=== PATIENT | male | born 1970 | race Caucasian/White ===

== ENCOUNTER → 2017-10-13 10:28 | Outpatient (CLI) | payer OTHER, SELFPAY ==
[2017-10-13 12:59] LABS: Cholesterol 198 mg/dL (200); High Density Lipoprotein 29 mg/dL; Triglycerides 307 mg/dL; Very Low Density Lipoprotein 61 mg/dL (5-40)
== END ==
PROVIDERS: Family Provider Family Medicine; PCP Family Medicine; Visit Provider Family Medicine
DX: Z00.00 Encounter for general adult medical examination without abnormal findings (principal)
CPT/HCPCS: 36415; 80061

== ENCOUNTER → 2018-05-04 15:24 | Outpatient (CLI) | payer OTHER, SELFPAY ==
--- NOTE | 2018-05-04 15:50 | MRI_ITS ---
STUDY: MRI BRAIN WITH AND WITHOUT CONTRAST REASON FOR EXAM: Male, 48 years old. Multiple sclerosis TECHNIQUE: Standardized multiplanar fat and water weighted pulse sequences were obtained. 11 ml of Gadavist contrast material was administered intravenously for the contrast portion of the examination. COMPARISON: September 03, 2016 FINDINGS: Normal size of the ventricles and extra-axial spaces for the patient's age. There are multiple periventricular white matter lesions several of which involve the septal callosal interface and demonstrate the appearance of Barraza's fingers system with clinical history of multiple sclerosis. There is enhancement of one of the lesions in the left parietal lobe consistent with acute demyelination There appear to be tiny lesions within the basal ganglia possibly representing coexisting old lacunar infarcts Normal thalami. There is no extra-axial fluid accumulation. Normal flow voids within the major intracranial circulation suggesting patency by spin echo criteria. Normal venous enhancement. There is no enhancing intra-axial or extra-axial abnormality. Normal sella turcica, pituitary gland, infundibular stalk, optic chiasm and hypothalamus. Normal tectal plate and pineal gland. Normal midbrain, suman and medulla. Normal cerebellum. Normal basal cisterns. Normal bilateral temporal bones. Normal bilateral internal auditory canals. No demonstrated orbital abnormality, within the constraints of a routine brain study. Mild mucosal thickening within the maxillary sinuses and minor mucosal thickening within the ethmoid air cells bilaterally.. Normal calvarium and skull base. Normal visualized soft tissue structures. Normal visualized upper cervical spine. Other than the new enhancing lesion in the left parietal lobe there is no significant interval change since prior exam MRI/Brain W/WO Contrast IMPRESSION: Relatively stable appearance to known multiple sclerosis except for a new lesion in the left parietal lobe demonstrating enhancement consistent with active demyelination Tiny lesions involving the basal ganglia which may be consistent with coexisting old lacunar infarcts. Clinical correlation recommended. Electronically Signed: Vinayak Jackson MD at 19:01 EST , Service support ,
--- NOTE | 2018-05-04 15:50 | MRI_ITS ---
STUDY: MRI CERVICAL SPINE WITH AND WITHOUT CONTRAST REASON FOR EXAM: Male, 48 years old. Multiple sclerosis TECHNIQUE: Standardized fat and water weighted pulse sequences were obtained in the sagittal and axial following I.V. administration of 11 ml of Gadavist contrast material. COMPARISON: None FINDINGS: Normal foramen magnum and brainstem-cervical cord junction. Normal craniovertebral junction. Normal anterior atlantoaxial articulation. Normal odontoid process. Normal cervical lordosis. Normal vertebral bodies and posterior osseous elements. C2-3: Normal endplates. Normal disc height, signal and morphology. Normal central canal and intervertebral neural foramina. C3-4: Normal endplates. Normal disc height, signal and small central disc protrusion.. Normal central canal . Minor left neural foraminal encroachment secondary to bony hypertrophy C4-5: Normal endplates. Normal disc height, signal and morphology. Normal central canal. Normal bilateral neuroforamina C5-6: Mild endplate spurring.. Normal disc height, signal and small central disc protrusion in association with diffuse osteophytic ridging.. Mild narrowing of the central canal. Severe bilateral neuroforaminal stenosis secondary to bony hypertrophy C6-7: Normal endplates. Normal disc height, signal and minimal bulging of the disc.. Normal central canal . Moderate left neural foraminal encroachment secondary to disc and bony hypertrophy C7-T1: Normal endplates. Normal disc height, signal and morphology. Normal central canal and intervertebral neural foramina. Normal cervical cord. Normal visualized soft tissue structures. MRI/Spine Cervical W/WO Contrast IMPRESSION: No evidence for acute fracture or other significant bony pathology. Mild spondylosis most advanced at C5-6. No focal demyelinating lesions within the cord No abnormal enhancement Electronically Signed: Vinayak Jackson MD at 22:17 EST , Service support ,
== END ==
PROVIDERS: Family Provider Family Medicine; PCP Family Medicine; Referring Provider Internal Medicine; Visit Provider Internal Medicine
DX: G35 Multiple sclerosis (principal)
CPT/HCPCS: 70553; 72156; A9585

== ENCOUNTER 2018-06-02 16:11 | Outpatient (RCR) | payer OTHER, SELFPAY ==
[2018-06-02 17:54] LABS: AST(SGOT) 27 U/L (15-37); Alanine Aminotransfer ALT/SGPT 43 U/L (16-61); Albumin, Serum 4.2 g/dL (3.2-5.0); Alkaline Phosphatase 86 U/L (45-117); Bilirubin, Direct 0.12 mg/dL (0.00-0.30); Globulin 3.7 g/dL (2.2-4.2); Protein, Total 7.9 g/dL (6.4-8.2)
== END 2018-06-08 14:32 | disposition home or self-care (01) ==
LOC: MTLAB 16:11
PROVIDERS: Family Provider Family Medicine; PCP Family Medicine; Referring Provider Internal Medicine; Visit Provider Internal Medicine
DX: G35 Multiple sclerosis (principal)
CPT/HCPCS: 36415; 80076

== ENCOUNTER 2018-08-07 09:08 | Outpatient (RCR) | payer OTHER, SELFPAY ==
[2018-08-07 12:56] LABS: AST(SGOT) 28 U/L (15-37); Alanine Aminotransfer ALT/SGPT 42 U/L (16-61); Albumin, Serum 4.1 g/dL (3.2-5.0); Alkaline Phosphatase 86 U/L (45-117); Bilirubin, Direct 0.15 mg/dL (0.00-0.30); Globulin 3.5 g/dL (2.2-4.2); Protein, Total 7.6 g/dL (6.4-8.2)
== END 2018-08-08 16:00 | disposition home or self-care (01) ==
LOC: MTLAB 09:08
PROVIDERS: Family Provider Family Medicine; PCP Family Medicine; Referring Provider Internal Medicine; Visit Provider Internal Medicine
DX: G35 Multiple sclerosis (principal)
CPT/HCPCS: 36415; 80076

== ENCOUNTER → 2019-02-12 09:53 | Outpatient (CLI) | payer OTHER, SELFPAY ==
[2019-02-12 12:19] LABS: Absolute Neutrophil Count 1.7 X10^3/uL (2.0-7.7); Basophil# 0.07 X10^3/uL; Basophil% 1.6 % (0-1); Eosinophil# 0.22 X10^3/uL; Hematocrit 45.4 % (40-54); Hemoglobin 15.1 g/dL (13.0-16.5); Lymphocyte % 41.2 % (19-41); Mean Corp Hgb Conc 33.3 g/dL (32-36); Mean Corpuscular Hgb 31.4 pg (27.0-32.0); Mean Corpuscular Volume 94.4 fL (80-94); Mean Platelet Vol. 11.3 fl (6.2-12.0); Monocyte# 0.57 X10^3/uL; NRBC Flagged by Analyzer 0 % (0-5); Platelet Count 175 K/mm3 (150-450); RBC Distribution Width CV 12.3 % (11.6-14.6); RBC Distribution Width SD 43.1 fl (35.1-43.9); Red Blood Count 4.81 M/mm3 (4.6-6.2); White Blood Count 4.4 K/mm3 (4.4-11.0)
[2019-02-12 12:32] LABS: AST(SGOT) 29 U/L (15-37); Alanine Aminotransfer ALT/SGPT 42 U/L (16-61); Alkaline Phosphatase 77 U/L (45-117); Anion Gap 4 (5-15); BUN 15 mg/dL (7-18); BUN/Creat Ratio 14.4 RATIO (10-20); Chloride 104 mmol/L (98-107); Creatinine, Serum 1.04 mg/dL (0.70-1.30); EST Glomerular Filtration Rate 80 mL/min (>60); Est Glom Filt Rate - Afr Amer 97 mL/min (>60); Glucose 92 mg/dL (74-106); Hemoglobin A1c 5.7 % (4.2-6.3); PSA,Total - Annual Screen 2.86 ng/mL (0.00-4.00); Potassium 4.1 mmol/L (3.5-5.1); Sodium Level 137 mmol/L (136-145)
[2019-02-12 13:26] LABS: Microalbumin,Random Urine 11.1 mg/L (NO RANGE EST.); Microalbumin:Creatinine Ratio 10.5 mg/g CRE (<30 mg/g CRE)
== END ==
PROVIDERS: Family Provider Family Medicine; PCP Family Medicine; Referring Provider Family Medicine; Visit Provider Family Medicine
DX: R35.0 Frequency of micturition (principal); R30.0 Dysuria
CPT/HCPCS: 36415; 80053; 82043; 82570; 83036; 84153; 85025; G0103

== ENCOUNTER → 2019-04-05 09:29 | Outpatient (CLI) | payer OTHER, SELFPAY ==
--- NOTE | 2019-04-05 09:36 | MRI_ITS ---
STUDY: MRI BRAIN WITH AND WITHOUT CONTRAST REASON FOR EXAM: Male, 49 years old. ms recheck,no new symptoms, hx vision changes 2 yrs ago TECHNIQUE: Standardized multiplanar fat and water weighted pulse sequences were obtained. Dotarem IV 20ml was administered for the contrast portion of the examination. COMPARISON: May 04, 2018 FINDINGS: Normal size of the ventricles and extra-axial spaces for the patient''s age. There are multiple periventricular and subcortical white matter hyperintensities. Findings are most prominent at the bilateral parieto-occipital regions. There is minimal involvement of the septal callosal interface with minimal callosal atrophy. There are approximately 10 black holes. There is no evidence of enhancement or restricted diffusion to suggest active demyelination Normal bilateral basal ganglia. Normal thalami. There is no extra-axial fluid accumulation. Normal flow voids within the major intracranial circulation suggesting patency by spin echo criteria. Normal venous enhancement. There is no enhancing intra-axial or extra-axial abnormality. Normal sella turcica, pituitary gland, infundibular stalk, optic chiasm and hypothalamus. Normal tectal plate and pineal gland. Normal midbrain, suman and medulla. Normal cerebellum. Normal basal cisterns. MRI/Brain W/WO Contrast IMPRESSION: Moderate white matter plaque without evidence of active demyelination. Electronically Signed: Josep Kern MD at 16:05 EST Tel , Service support ,
== END ==
PROVIDERS: Family Provider Family Medicine; PCP Family Medicine
DX: G35 Multiple sclerosis (principal)
CPT/HCPCS: 70553; A9575

== ENCOUNTER → 2020-05-09 15:07 | Outpatient (CLI) | payer OTHER, SELFPAY ==
[2020-05-09 17:39] LABS: Absolute Lymphocyte Count 1.88 X10^3/uL (0.83-4.51); Absolute Neutrophil Count 1.9 X10^3/uL (2.0-7.7); Basophil# 0.06 X10^3/uL; Basophil% 1.4 % (0-1); Eosinophil# 0.11 X10^3/uL; Eosinophils% 2.6 % (0-5); Hematocrit 44.7 % (40-54); Hemoglobin 14.7 g/dL (13.0-16.5); Lymphocyte # 1.88 X10^3/ul (4.0); Lymphocyte % 44.2 % (19-41); Mean Corp Hgb Conc 32.9 g/dL (32-36); Mean Corpuscular Hgb 31.7 pg (27.0-32.0); Mean Corpuscular Volume 96.3 fL (80-94); Mean Platelet Vol. 11.2 fl (6.2-12.0); Monocyte% 7.1 % (0-10); NRBC Flagged by Analyzer 0 % (0-5); Neutrophil # 1.88 X10^3/uL (2.7-7.7); Neutrophil % 44.2 % (47-70); Platelet Count 207 K/mm3 (150-450); RBC Distribution Width CV 12.3 % (11.6-14.6); RBC Distribution Width SD 43.5 fl (35.1-43.9); Red Blood Count 4.64 M/mm3 (4.6-6.2); White Blood Count 4.3 K/mm3 (4.4-11.0)
[2020-05-09 17:49] LABS: Vitamin D,25 Hydroxy 64.5 ng/mL
[2020-05-09 17:54] LABS: AST(SGOT) 30 U/L (15-37); Alanine Aminotransfer ALT/SGPT 46 U/L (16-61); Alkaline Phosphatase 67 U/L (45-117); Anion Gap 6 (5-15); BUN 14 mg/dL (7-18); BUN/Creat Ratio 14.1 RATIO (10-20); Calcium,Total 9.1 mg/dL (8.5-10.1); Chloride 101 mmol/L (98-107); Creatinine, Serum 0.99 mg/dL (0.70-1.30); EST Glomerular Filtration Rate 84 mL/min (>60); Est Glom Filt Rate - Afr Amer 102 mL/min (>60); Globulin 3.9 g/dL (2.2-4.2); Glucose 130 mg/dL (74-106); Potassium 3.2 mmol/L (3.5-5.1); Protein, Total 7.9 g/dL (6.4-8.2); Sodium Level 136 mmol/L (136-145)
== END ==
PROVIDERS: PCP Family Medicine
DX: G35 Multiple sclerosis (principal)
CPT/HCPCS: 36415; 80053; 82306; 85025

== ENCOUNTER → 2022-08-20 | Outpatient (CLI) | payer OTHER, SELFPAY ==
[2022-08-20 12:35] LABS: Absolute Lymphocyte Count 1.16 X10^3/uL (0.83-4.51); Absolute Neutrophil Count 1.4 X10^3/uL (2.0-7.7); Basophil# 0.05 X10^3/uL; Basophil% 1.6 % (0-1); Eosinophil# 0.14 X10^3/uL; Eosinophils% 4.6 % (0-5); Hematocrit 40.7 % (40-54); Hemoglobin 13.8 g/dL (13.0-16.5); Lymphocyte # 1.16 X10^3/ul (0.83-4.51); Lymphocyte % 37.9 % (19-41); Mean Corp Hgb Conc 33.9 g/dL (32-36); Mean Corpuscular Hgb 32.1 pg (27.0-32.0); Mean Corpuscular Volume 94.7 fL (80-94); Mean Platelet Vol. 10.9 fl (6.2-12.0); Monocyte# 0.35 X10^3/uL; Monocyte% 11.4 % (0-10); NRBC Flagged by Analyzer 0 % (0-5); Neutrophil # 1.35 X10^3/uL (2.7-7.7); Neutrophil % 44.2 % (47-70); Platelet Count 187 K/mm3 (150-450); RBC Distribution Width CV 11.9 % (11.6-14.6); RBC Distribution Width SD 41.4 fl (35.1-43.9); White Blood Count 3.1 K/mm3 (4.4-11.0)
[2022-08-20 13:30] LABS: ALB/GLOB Ratio 1.1 RATIO (0.9-2.4); AST(SGOT) 37 U/L (15-37); Alanine Aminotransfer ALT/SGPT 69 U/L (16-61); Alkaline Phosphatase 91 U/L (45-117); Anion Gap 6 (5-15); BUN 23 mg/dL (7-18); BUN/Creat Ratio 21.7 RATIO (10-20); Chloride 105 mmol/L (98-107); Creatinine, Serum 1.06 mg/dL (0.70-1.30); EST Glomerular Filtration Rate 77 mL/min (>60); Est Glom Filt Rate - Afr Amer 93 mL/min (>60); Globulin 3.6 g/dL (2.2-4.2); Glucose 102 mg/dL (74-106); PSA,Total- Diagnostic 2.61 ng/mL (0.0-4.0); Potassium 3.7 mmol/L (3.5-5.1); Protein, Total 7.6 g/dL (6.4-8.2); Sodium Level 138 mmol/L (136-145); Thyroid Stim Hormone (TSH) 1.86 uIU/mL (0.358-3.74)
== END | disposition home or self-care (01) ==
LOC: MFPLAB 10:57
PROVIDERS: PCP Family Medicine; Visit Provider Family Medicine
DX: G35 Multiple sclerosis (principal); R35.89 Other polyuria
CPT/HCPCS: 36415; 80053; 84153; 84443; 85025

== ENCOUNTER → 2022-08-25 | Outpatient (CLI) | payer OTHER, SELFPAY ==
--- NOTE | 2022-08-25 19:29 | US_ITS ---
INDICATION: urgency EXAMINATION: Ultrasound US Kidney(s) complete (eg, kidneys and bladder) TECHNIQUE: Puckett scale and color doppler images were obtained of the kidneys. COMPARISON: None. FINDINGS: Medial RIGHT KIDNEY: 12.3 x 5.7 x 6.4 cm. Trace fluid in the right renal pelvis. No estela hydronephrosis.. No shadowing calculus or perinephric collection is demonstrated. 2.4cm lower pole cyst. Evaluation probably degenerative day and gadodiamide. Imaging coronal adenopathy. No pulmonary or abdominal adenopathy. LEFT KIDNEY: 12.8 x 3.9 x 5.6 cm. There is no hydronephrosis. No shadowing calculus or perinephric collection is demonstrated. Exophytic 2.7 cm and 1.8 cm cyst URINARY BLADDER: Anechoic without focal wall thickening. Prevoid volume 692 ml. Post void volume 93ml.. Bilateral ureteral jets are present. US/Kidney and Bladder IMPRESSION: Trace fluid in the right renal pelvis without estela hydronephrosis. Bilateral renal cysts. Bladder post void volume 90 mL. No other acute finding. Electronically Signed: Matthieu Chau MD at 22:12 EDT ,
== END | disposition home or self-care (01) ==
PROVIDERS: PCP Family Medicine; Visit Provider Family Medicine
DX: R39.15 Urgency of urination (principal)
CPT/HCPCS: 76770

== ENCOUNTER → 2022-10-20 | Outpatient (CLI) | payer OTHER, SELFPAY ==
--- NOTE | 2022-10-20 16:01 | MRI_ITS ---
STUDY: MRI BRAIN WITH AND WITHOUT CONTRAST REASON FOR EXAM: Male, 52 years old. MS F/U TECHNIQUE: Standardized multiplanar fat and water weighted pulse sequences were obtained. IV 19CC CLARISCAN was administered for the contrast portion of the examination. COMPARISON: MRI of the brain April 05, 2019 FINDINGS: Normal size of the ventricles and extra-axial spaces for the patient''s age. Multiple periventricular white matter lesions bilaterally several of which have the appearance of Barraza''s fingers consistent with clinical diagnosis of multiple sclerosis.. Cannot definitively exclude coexisting chronic small vessel ischemic changes. There is no evidence for acute infarction. The number of white matter lesions are stable since previous exam although couple of them are slightly larger possibly due to volume averaging. Normal bilateral basal ganglia. Normal thalami. There is no extra-axial fluid accumulation. Normal flow voids within the major intracranial circulation suggesting patency by spin echo criteria. Normal venous enhancement. There is no enhancing intra-axial or extra-axial abnormality. Normal sella turcica, pituitary gland, infundibular stalk, optic chiasm and hypothalamus. Normal tectal plate and pineal gland. Normal midbrain, suman and medulla. Normal cerebellum. Normal basal cisterns. Normal bilateral temporal bones. Normal bilateral internal auditory canals. No demonstrated orbital abnormality, within the constraints of a routine brain study. Mild mucosal thickening of the bilateral maxillary and ethmoid air cells. Normal calvarium and skull base. Normal visualized soft tissue structures. Normal visualized upper cervical spine. MRI/Brain W/WO Contrast IMPRESSION: Moderate periventricular white matter disease consistent with clinical history of multiple sclerosis stable since previous study without evidence for acute demyelination Electronically Signed: Vinayak Jacskon MD at 17:25 EDT ,
== END | disposition home or self-care (01) ==
PROVIDERS: PCP Family Medicine; Referring Provider Internal Medicine; Visit Provider Internal Medicine
DX: G35 Multiple sclerosis (principal)
CPT/HCPCS: 70553; A9575

== ENCOUNTER → 2023-08-03 | Outpatient (CLI) | payer OTHER, SELFPAY ==
[2023-08-03 17:37] LABS: Absolute Lymphocyte Count 1.54 X10^3/uL (0.83-4.51); Absolute Neutrophil Count 5.9 X10^3/uL (2.0-7.7); Basophil# 0.04 X10^3/uL; Basophil% 0.5 % (0-1); Eosinophil# 0.07 X10^3/uL; Eosinophils% 0.9 % (0-5); Hematocrit 38.7 % (40-54); Hemoglobin 13.1 g/dL (13.0-16.5); Lymphocyte # 1.54 X10^3/ul (0.83-4.51); Lymphocyte % 18.9 % (19-41); Mean Corp Hgb Conc 33.9 g/dL (32-36); Mean Corpuscular Hgb 32.3 pg (27.0-32.0); Mean Corpuscular Volume 95.3 fL (80-94); Mean Platelet Vol. 9.9 fl (6.2-12.0); Monocyte# 0.55 X10^3/uL; Monocyte% 6.8 % (0-10); NRBC Flagged by Analyzer 0 % (0-5); Neutrophil # 5.88 X10^3/uL (2.7-7.7); Neutrophil % 72.3 % (47-70); Platelet Count 203 K/mm3 (150-450); RBC Distribution Width CV 12.6 % (11.6-14.6); Red Blood Count 4.06 M/mm3 (4.6-6.2); White Blood Count 8.1 K/mm3 (4.4-11.0)
[2023-08-03 18:09] LABS: ALB/GLOB Ratio 1.1 RATIO (0.9-2.4); AST(SGOT) 42 U/L (15-37); Alanine Aminotransfer ALT/SGPT 87 U/L (16-61); Albumin, Serum 3.8 g/dL (3.2-5.0); Alkaline Phosphatase 93 U/L (45-117); Anion Gap 6 (5-15); BUN 29 mg/dL (7-18); Calcium,Total 8.8 mg/dL (8.5-10.1); Chloride 108 mmol/L (98-107); Cholesterol 227 mg/dL (200); Creatinine, Serum 1.21 mg/dL (0.70-1.30); EST Glomerular Filtration Rate 66 mL/min (>60); Est Glom Filt Rate - Afr Amer 80 mL/min (>60); Globulin 3.5 g/dL (2.2-4.2); Glucose 149 mg/dL (74-106); High Density Lipoprotein 55 mg/dL; PSA,Total - Annual Screen 2.21 ng/mL (0.00-4.00); Protein, Total 7.3 g/dL (6.4-8.2); Sodium Level 141 mmol/L (136-145); Triglycerides 189 mg/dL; Very Low Density Lipoprotein 38 mg/dL (5-40)
== END | disposition home or self-care (01) ==
LOC: MTLAB 14:24
PROVIDERS: Family Medicine; PCP Family Medicine; Referring Provider Family Medicine; Visit Provider Family Medicine
DX: E78.00 Pure hypercholesterolemia, unspecified (principal); I10 Essential (primary) hypertension; Z12.5 Encounter for screening for malignant neoplasm of prostate
CPT/HCPCS: 36415; 80053; 80061; 84153; 85025; G0103

== ENCOUNTER → 2024-05-22 | Outpatient (CLI) | payer OTHER, SELFPAY ==
[2024-05-22 10:13] LABS: Absolute Neutrophil Count 1.7 X10^3/uL (2.0-7.7); Basophil# 0.06 X10^3/uL; Basophil% 1.6 % (0-1); Eosinophils% 5.3 % (0-5); Hemoglobin 13.7 g/dL (13.0-16.5); Lymphocyte % 37.3 % (19-41); Mean Corp Hgb Conc 35.1 g/dL (32-36); Mean Corpuscular Volume 91.1 fL (80-94); Mean Platelet Vol. 9.6 fl (6.2-12.0); Monocyte# 0.38 X10^3/uL; Monocyte% 10.1 % (0-10); NRBC Flagged by Analyzer 0 % (0-5); Neutrophil # 1.69 X10^3/uL (2.7-7.7); Neutrophil % 45.2 % (47-70); Platelet Count 203 K/mm3 (150-450); RBC Distribution Width CV 12.2 % (11.6-14.6); Red Blood Count 4.28 M/mm3 (4.6-6.2); White Blood Count 3.8 K/mm3 (4.4-11.0)
[2024-05-22 10:53] LABS: AST(SGOT) 24 U/L (15-37); Alanine Aminotransfer ALT/SGPT 44 U/L (16-61); Albumin, Serum 3.8 g/dL (3.2-5.0); Alkaline Phosphatase 76 U/L (45-117); Anion Gap 7 (5-15); BUN 27 mg/dL (7-18); BUN/Creat Ratio 23.7 RATIO (10-20); Calcium,Total 9.8 mg/dL (8.5-10.1); Chloride 110 mmol/L (98-107); Creatinine, Serum 1.14 mg/dL (0.70-1.30); EST Glomerular Filtration Rate 71 mL/min (>60); Est Glom Filt Rate - Afr Amer 85 mL/min (>60); Globulin 3.7 g/dL (2.2-4.2); Glucose 114 mg/dL (74-106); Potassium 4.5 mmol/L (3.5-5.1); Protein, Total 7.5 g/dL (6.4-8.2); Sodium Level 140 mmol/L (136-145)
[2024-05-23 12:07] LABS: Immunoglobulin G 1179 mg/dL (603-1613)
== END | disposition home or self-care (01) ==
LOC: MTLAB 07:04
PROVIDERS: PCP Family Medicine; Referring Provider Nurse Practitioner Gerontology; Visit Provider Nurse Practitioner Gerontology
DX: Z79.899 Other long term (current) drug therapy (principal)
CPT/HCPCS: 36415; 80053; 82784; 85025

== ENCOUNTER 2024-10-05 08:04 | Day surgery (SDC) | payer OTHER, SELFPAY ==
[2024-10-05] VITALS (9 sets, daily range): BP systolic 74–129; BP diastolic 42–87; PULSE 48–58; RESP 16–18; TEMP 36.2–36.7; O2SAT 96–100
[2024-10-05] MEDS: Lactated Ringers 1,000 ML 15 ML IV (08:35)
--- NOTE | 2024-10-05 09:16 | PRE.ANES_ITS ---
ASA Classification* ASA Classification ASA Classification: 2 Assessment & Plan Anesthesia* Anesthesia Assessment Anesthesia Assessment: Discussed sedation and/or anesthesia options, risks, benefits, and alternatives with patient/parents/legal guardian/POA. Questions invited. The patient/parents/legal guardian/POA seems to understand and agrees to proceed with anesthesia plan. Reviewed the physical assessment, medical history, allergy history and patient home medications list prior to surgery/procedure/anesthetic and documented any changes. Performed airway and anesthesia risk assessments. Anesthesia Type Anesthesia Type: MAC History Source History Obtained from:: Patient and Chart Anesthesia Focused Assessment* Temperature: 97.5 F Pulse Rate: 50 Blood Pressure: 114/87 Respiratory Rate: 16 Pulse Ox: 100 Oxygen Delivery Method: Room Air Airway Assessment Mouth opens: >3 cm Mallampati Score: II Teeth Condition: Caps/Crowns (Patient has several crowns. They are tight.) and Implants (Patient has a couple implants. They are tight.) Neck Range of motion (ROM): Full ROM Labs Anesthesia Preop lab: CBC WBC 3.8 K/mm3 (4.4-11.0) L 05/22/24 07:06 05/22/24 RBC 4.28 M/mm3 (4.6-6.2) L 05/22/24 07:06 05/22/24 Hgb 13.7 g/dL (13.0-16.5) 05/22/24 07:06 05/22/24 Hct 39.0 % (40-54) L 05/22/24 07:06 05/22/24 Plt Count 203 K/mm3 (150-450) 05/22/24 07:06 05/22/24 CHEMISTRY Potassium 4.5 mmol/L (3.5-5.1) 05/22/24 07:06 05/22/24 Sodium 140 mmol/L (136-145) 05/22/24 07:06 05/22/24 Magnesium 2.2 mg/dL (1.8-2.4) 01/24/17 12:32 01/24/17 BUN 27 mg/dL (7-18) H 05/22/24 07:06 05/22/24 Creatinine 1.14 mg/dL (0.70-1.30) 05/22/24 07:06 05/22/24 Glucose 114 mg/dL (74-106) H 05/22/24 07:06 05/22/24 TSH 1.86 uIU/mL (0.358-3.74) 08/20/22 10:58 COAG Pre-Assessment Diagnosis/Proposed Procedure Planned Operative Procedure(s): CSCOPE OA Anesthesia History 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 When Was Last Pacemaker Check QUESTION #4 FULL TEXT: You/Your Family Experience fever (hyperthermia) with Anesthesia Last Oral Intake Last Oral intake: Last Oral Intake NPO since 07:15 10/05/24 08:30 Meds taken in AM with sips of Yes 10/05/24 08:30 water? Meds patient instructed to take am of surgery Any additional information?: Yes Meds taken in AM with sips of water?: Yes PONV PONV - food preparation supervisor: PONV - food preparation supervisor Female No 10/03/24 13:47 HX of Motion Sickness No 10/03/24 13:47 HX of N/V After Surgery No 10/03/24 13:47 Non-Smoker No 10/03/24 13:47 Duration of Surgery greater No 10/03/24 13:47 than 60 minutes Number of Risk Factors PONV Score Height & Weight Height & Weight: Anesthesia: Height & Weight Height 5 ft 10 in 10/05/24 08:30 Weight: 95 kg 10/05/24 08:30 Body Mass Index (BMI) 30.0 10/05/24 08:30 Respiratory Assessment Respiratory Assessment - food preparation supervisor: Respiratory Tract Infection Hx - food preparation supervisor Hx Respiratory Tract Infection No 10/03/24 13:47 STOP Sleep Apnea STOP Sleep Apnea - food preparation supervisor: STOP Sleep Apnea - food preparation supervisor Hx Hypertension Yes: CONTROLLED WITH MED 10/03/24 13:47 Hx Sleep Apnea No 10/03/24 13:47 CPAP BIPAP Do you snore loudly (louder No 10/03/24 13:47 than talking or can be heard Do you often feel tired/ No 10/03/24 13:47 fatigued/ sleepy during daytime? Has anyone observed you stop No 10/03/24 13:47 breathing during sleep? STOP Results Negative 10/03/24 13:47 QUESTION #5 FULL TEXT : Do you snore loudly (louder than talking or can be heard through closed doors)? 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 Specify any problems Hx of Preganancy in last 3 N/A 10/03/24 13:47 Months Nurse Filling Out Transfusion DSCHRIBER 10/03/24 13:47 & Questions: Date: 10/03/24 10/03/24 13:47 Time: 13:48 10/03/24 13:47 Patient unable to answer at this time (ie. confused, unrespo /Reproduction History /Reproductive History - food preparation supervisor: /Reproductive Hx- food preparation supervisor Hx Now No 10/03/24 13:47 Gestational Age (in weeks): EDC: Hx Hx Para Hx Section SAB No 10/03/24 13:47 Active Medications Active Medications: Current Medications Generic Name Dose Route Start Last Admin Trade Name Freq PRN Reason Stop Dose Admin Lactated Ringer's 1,000 mls @ 15 mls/hr 10/05/24 08:15 10/05/24 08:35 IV 15 mls/hr .Q48H ABA Administration PFS Medical History Wears glasses Wears contact lenses Alcohol use History of steroid therapy Arthritis Multiple sclerosis Patient uses snuff Hypertension Home Medications ?Medication ?Instructions ?Recorded ?Last Taken ?Type cholecalciferol (vitamin D3) 1,250 1,250 mcg PO QWEEK 10/03/24 Unknown History mcg (50,000 unit) capsule diphenhydramine HCl 25 mg capsule 25 mg PO Q8H PRN itc thania 10/03/24 Unknown History (Benadryl) olmesartan 20 mg tablet 20 mg PO DAILY 10/03/2409/10 07:15 History prednisone 5 mg tablets in a dose See Rx Instructions PO .COMPLEX 10/03/24 Unknown History pack Allergy/AdvReac Type Severity Reaction Status Date / Time No Known Allergies Allergy Verified 10/05/24 08:28 Surgical History Hx of oral surgery Hx of tonsillectomy Social History Smoking Status: Current every day smoker tobacco type: smokeless tobacco Review of Systems (Anesthesia) ROS Narrative System reviewed and no additional complaints, except as documented.
--- NOTE | 2024-10-05 09:27 | HP.PCM_ITS ---
HPI - General HPI Narrative MIESHA MULLINS, is a 54 M who presents for screening colonoscopy. Patient has never had a colonoscopy in the past. He denies any abdominal pain or blood in stool. No family history of colon cancer. PFSH Medical History Wears glasses Wears contact lenses Alcohol use History of steroid therapy Arthritis Multiple sclerosis Patient uses snuff Hypertension Home Medications ?Medication ?Instructions ?Recorded ?Last Taken ?Type cholecalciferol (vitamin D3) 1,250 1,250 mcg PO QWEEK 10/03/24 Unknown History mcg (50,000 unit) capsule diphenhydramine HCl 25 mg capsule 25 mg PO Q8H PRN itc thania 10/03/24 Unknown History (Benadryl) olmesartan 20 mg tablet 20 mg PO DAILY 10/03/2409/10 07:15 History prednisone 5 mg tablets in a dose See Rx Instructions PO .COMPLEX 10/03/24 Unknown History pack Allergy/AdvReac Type Severity Reaction Status Date / Time No Known Allergies Allergy Verified 10/05/24 08:28 Surgical History Hx of oral surgery Hx of tonsillectomy Social History Smoking Status: Current every day smoker tobacco type: smokeless tobacco Past Medical/Surgical History Planned Operation Planned Operative Procedure(s): CSCOPE OA Previous Hospitalizations/Surgeries HX Hospitalizations: No Any Problems With Anesthesia: No You/Your Family Experience Fever (Hyperthermia) With Anes: No Cholinesterase deficiency: No Cardiovascular Hx Hypertension: Yes (CONTROLLED WITH MED) Respiratory Hx Chronic Obstructive Pulmonary Disease (COPD): No Hx Asthma: No Hx Emphysema: No Hx Sleep Apnea: No Hx Respiratory Tract Infection/Cold (presently): No Do You Snore Loudly (louder than talking or can be heard): No Do You Often Feel Tired/ Fatigued/ Sleepy Dring Daytime?: No Has Anyone Observed You Stop Breathing During Sleep?: No Result (for STOP score): Negative Smoking Status: Current every day smoker Neurological Does patient have nerve stimulator: No Reproduction : No Miscellaneous Recent Exposure to Contagious Disease: No Allergies No Known Allergies Allergy (Verified 10/05/24 08:28) Discharge Is Pt Admitted From a Penitentiary, or a Skilled Nursing: No After D/C, Where Do you Plan to Go: Return Home Vital Signs Vital Signs Vital Signs: 10/05/24 08:30 10/05/24 08:30 10/05/24 09:23 Temperature 97.5 F L 97.5 F L Temperature Source Temporal Pulse Rate 50 L 50 L Respiratory Rate 16 16 Respiratory Pattern Normal Blood Pressure 114/87 H 114/87 H Blood Pressure Mean 96 Blood Pressure Source Monitor Blood Pressure Position Sitting Blood Pressure Location Right Arm Pulse Ox 100 100 Oxygen Delivery Method Room Air Room Air Weight Weight: 209 lb 7.026 oz Body Mass Index (BMI) 30.0 Physical Exam Const alert and oriented x3 HEENT normocephalic Eyes PERRL Resp normal respiratory effort and normal air movement Cardio regular rate and regular rhythm GI soft to palpation, non-tender and non-distended Extremity normal to inspection Assessment & Plan Assessment/Plan (1) Screen for colon cancer: PLAN: I explained endoscopy in detail to the patient. I explained the risks including but not limited to stroke or heart attack with anesthesia, perforation of the GI tract, bleeding, infection. I explained that any of these could necessitate further emergency surgery. The patient understands and all questions were answered sufficiently. The patient wishes to proceed with procedure. Faraz Hernandez MD Pager: [facility] [address] [place] [address], [address] [place] [address] Office: Surgery Risks - Colonoscopy Risks Include but are not Limited To: Risks include but are not limited to: Bleeding, perforation requiring further surgery, inability to complete colonoscopy requiring barium enema.
--- NOTE | 2024-10-05 09:58 | OP.COLON_ITS ---
Patient Name: Salvador York Procedure Date: 10/05/2024 9:31 AM Date of : 1970 Age: 54 Procedure: Colonoscopy Indications: Screening for colorectal malignant neoplasm Providers: Faraz Hernandez MD Medicines: Propofol per Anesthesia Patient Profile: This is a 54 year old male. Refer to note in patient chart for documentation of history and physical. Last Colonoscopy: none. The patient's first colonoscopy is today. Complications: No immediate complications. Procedure: Pre-Anesthesia Assessment: - Prior to the procedure, a History and Physical was performed, and patient medications and allergies were reviewed. The patient's tolerance of previous anesthesia was also reviewed. The risks and benefits of the procedure and the sedation options and risks were discussed with the patient. All questions were answered, and informed consent was obtained. Prior Anticoagulants: The patient has taken no anticoagulant or antiplatelet agents. After reviewing the risks and benefits, the patient was deemed in satisfactory condition to undergo the procedure. After I obtained informed consent, the scope was passed under direct vision. Throughout the procedure, the patient's blood pressure, pulse, and oxygen saturations were monitored continuously. The Colonoscope was introduced through the anus and advanced to the cecum, identified by appendiceal orifice and ileocecal valve. The colonoscopy was performed without difficulty. The patient tolerated the procedure well. The quality of the bowel preparation was good. The ileocecal valve, appendiceal orifice, and rectum were photographed. Scope In: 9:41:56 AM Scope Withdrawal Time 0 hours 6 minutes 10 seconds Scope Out: 9:54:20 AM Total Procedure Duration Time 0 hours 12 minutes 24 seconds Findings: The entire examined colon appeared normal on direct and retroflexion views. Impression: - The entire examined colon is normal on direct and retroflexion views. - No specimens collected. Recommendation: - Discharge patient to home. - Resume previous diet. - Continue present medications. - Repeat colonoscopy in 10 years for screening purposes. Procedure Code(s): --- Professional --- 79794, Colonoscopy, flexible; diagnostic, including collection of specimen(s) by brushing or washing, when performed (separate procedure) Diagnosis Code(s): --- Professional --- Z12.11, Encounter for screening for malignant neoplasm of colon CPT copyright 2021 [employer]. All rights reserved. The codes documented in this report are preliminary and upon enterprise records analyst review may be revised to meet current compliance requirements. Faraz Hernandez MD 10/05/2024 9:58:08 AM This report has been signed electronically. Number of Addenda: 0 Note Initiated On: 10/05/2024 9:31 AM
--- NOTE | 2024-10-05 09:58 | OP.CCLET_ITS ---
10/05/2024 Theo Falk [address] [place] [address] Re : Colonoscopy procedure for Salvador York Dear Dr. Falk This procedure was performed on Saturday, October 05, 2024. My impressions and recommendations are as follows: Impressions : - The entire examined colon is normal on direct and retroflexion views. - No specimens collected. Recommendations : - Discharge patient to home. - Resume previous diet. - Continue present medications. - Repeat colonoscopy in 10 years for screening purposes. My findings are described in the full procedure note, which is enclosed. If I can be of further assistance, please feel free to contact me at Doctor phone number(s): , Work: . Sincerely, Faraz Hernandez MD 10/05/2024 9:58:08 AM This report has been signed electronically.
--- NOTE | 2024-10-05 09:59 | PCM.POST.ANE ---
Anesthesia: Postop Eval I Current Vital Signs Temperature: 97.1 F Pulse Rate: 49 Blood Pressure: 85/44 Respiratory Rate: 18 Pulse Ox: 96 Assessment Airway patent: Yes Spontaneous unlabored respirations: Yes nausea: No Vomiting: No Anesthesia Complication: No Fluid Hydration Crystalloid volume administer (ml): 500 Total IV fluid infused: 500 Progress Note Anesthesia document: Postop Eval 1 completed: Yes
--- NOTE | 2024-10-05 10:27 | POSTOPAN2_ITS ---
Anesthesia Postop Eval I Sum Postop Eval Completion status Anesthesia document: Postop Eval 1 completed: Yes Anesthesia Postop Eval I Summary Anesthesia Postop Eval I Summary: Anesthesia Postop Eval I: Assessment Summary Airway patent Yes 10/05/24 09:59 LOCOMOTIVE ELECTRICIAN.[facility] Spontaneous unlabored Yes 10/05/24 09:59 LOCOMOTIVE ELECTRICIAN.[facility] respirations Mental status nausea No 10/05/24 09:59 LOCOMOTIVE ELECTRICIAN.[facility] Vomiting No 10/05/24 09:59 LOCOMOTIVE ELECTRICIAN.[facility] Anesthesia Postop Eval I: Fluid Summary Crystalloid volume administer 500 10/05/24 09:59 LOCOMOTIVE ELECTRICIAN.[facility]IR (ml) Colloids volume administered ( ml) Blood Product volume administered (ml) Total IV fluid infused 500 10/05/24 09:59 LOCOMOTIVE ELECTRICIAN.[facility] Anesthesia Postop Eval I: Summary Notes Anesthesia Complication No 10/05/24 09:59 LOCOMOTIVE ELECTRICIAN.[facility] Anesthesia Complication Comment: Post-operative progress note Anesthesia: Postop Eval II Evaluation Mental status: Awake Pain Level: 0 nausea: No Vomiting: No
--- NOTE | 2024-10-05 10:27 | PCM.POSTANE2 ---
Anesthesia Postop Eval I Sum Postop Eval Completion status Anesthesia document: Postop Eval 1 completed: Yes Anesthesia Postop Eval I Summary Anesthesia Postop Eval I Summary: Anesthesia Postop Eval I: Assessment Summary Airway patent Yes 10/05/24 09:59 RN PHYSICIAN OFFICE.[facility] Spontaneous unlabored Yes 10/05/24 09:59 RN PHYSICIAN OFFICE.[facility] respirations Mental status nausea No 10/05/24 09:59 RN PHYSICIAN OFFICE.[facility]IR Vomiting No 10/05/24 09:59 RN PHYSICIAN OFFICE.[facility] Anesthesia Postop Eval I: Fluid Summary Crystalloid volume administer 500 10/05/24 09:59 RN PHYSICIAN OFFICE.CSIR (ml) Colloids volume administered ( ml) Blood Product volume administered (ml) Total IV fluid infused 500 10/05/24 09:59 RN PHYSICIAN OFFICE.[facility]IR Anesthesia Postop Eval I: Summary Notes Anesthesia Complication No 10/05/24 09:59 RN PHYSICIAN OFFICE.[facility]IR Anesthesia Complication Comment: Post-operative progress note Anesthesia: Postop Eval II Evaluation Mental status: Awake Pain Level: 0 nausea: No Vomiting: No
--- OUTSIDE RECORDS SUMMARY | 2024-10-05 11:14 | XMS RPT_ITS | CCD ---
Author Organization [facility] CliniSyil Care Team Providers Care School Based Therapist Name Role Phone STEPHANIE REYES Attending Unavailable STEPHANIE REYES Referring Unavailable Theo Falk Primary Care Unavailable Faraz Hernandez Attending Unavailable Theo Falk Primary Care Unavailable Mary JOHNSON, Dr. Ruth Attending Provider Edward Logan MD Primary Care Provider [phone] Edward Logan MD Referring Provider [phone] Mary JOHNSON, Dr. Ruth Other Provider [phone] Medications Current Medications Medication Drug Class(es) Dates Sig (Normalized) Sig (Original) cholecalciferol 1.25 mg oral capsule (1 source) Vitamin D Start: 10-03-2024 take 1 capsule by mouth every week Cholecalciferol (Vitamin D3) 1,250 mcg (50,000 unit) capsule Active 1250 ug PO EVERY WEEK October 03, 2024 12:00am diphenhydrAMINE hydrochloride 25 mg oral capsule (1 source) Histamine-1 Receptor Antagonist Start: 10-03-2024 take 1 capsule by mouth every eight hours as needed Diphenhydramine Hcl (Benadryl) 25 mg capsule Active 25 mg PO Q8H as needed for itching October 03, 2024 12:00am olmesartan medoxomil 20 mg oral tablet (1 source) Angiotensin 2 Receptor Nomi Start: 10-03-2024 take 1 tablet by mouth once daily Olmesartan 20 mg tablet Active 20 mg PO DAILY October 03, 2024 12:00am predniSONE 5 mg oral tablet (1 source) Start: 10-03-2024 Prednisone 5 mg tablets,dose pack Active 0 PO .COMPLEX October 03, 2024 12:00am prednisone 5 mg: take 8 tablets (40 mg) on Day 1; 7 tablets (35 mg) on Day 2; then decrease by 1 tablet every day until finished Completed/Discontinued Medications Medication Drug Class(es) Dates Sig (Normalized) Sig (Original) acyclovir 800 mg oral tablet (2 sources) Herpesvirus Nucleoside Analog DNA Polymerase Inhibitor, Herpes Simplex Virus Nucleoside Analog DNA Polymerase Inhibitor, Herpes Zoster Virus Nucleoside Analog DNA Polymerase Inhibitor Start: 07-06-2015 End: 10-03-2024 take 1 tablet by mouth five times daily Acyclovir 800 MG tablet Discontinued 800 mg PO 5 TIMES DAILY 50 0 July 06, 2015 12:00am October 03, 2024 1:46pm Problems Problem Classification Problem Date Documented Da te Episodic/Chronic Other aftercare (1 source) Other fdc (current) drug therapy; Translations: [Other fdc (current) drug therapy] Onset: 07-23-2024 Episodic Other screening for suspected conditions (not mental disorders or infectious disease) (2 sources) Patient encounter status; Translations: [Encounter for screening for malignant neoplasm of colon] 10-05-2024 Episodic Results Test Name Value Interpretation Reference Range Facility Immunoglobulin Obi 5 IMMUNOGLOB G QN 1179 mg/dL Normal 603-1613 [facility] Comment on above: Result Comment: Perf ormed at: - [facility] [address] [id number] Check Embosser: Matias Adam PhD, Phone: [phone] Performed By: #### L 3200.1300, L500.4050, L100.0100 #### [facility] [address] [place], [place], [id number] CBC W/Diff, Automatedon 05-12 Absolute Lymph 1.40 X10 3/uL Normal 0.83-4.51 [facility] Comment on above: Performed By: #### L 3200.1300, L500.4050, L100.0100 #### [facility] [address] [place], [address] Absolute Neut 1.7 X10 3/uL Low 2.0-7.7 [facility] Comment on above: Performed By: #### L 3200.1300, L500.4050, L100.0100 #### [facility] [address] [facility] [place], [address] Basophils/100 WBC (Bld) 1.6 % High 0-1 [facility] Comment on above: Performed By: #### L 3200.1300, L500.4050, L100.0100 #### [facility] [address] [place], [address] Eosinophils/100 WBC (Bld) 5.3 % High 0-5 [facility] Comment on above: Performed By: #### L 3200.1300, L500.4050, L100.0100 #### [facility] [address] [place], [address] Erythrocyte distribution width (RBC) [Ratio] 12.2 % Normal 11.6-14.6 [facility] Comment on above: Performed By: #### L 3200.1300, L500.4050, L100.0100 #### [facility] [address], [address] Hematocrit (Bld) [Volume fraction] 39.0 % Low 40-54 [facility] Comment on above: Performed By: #### L 3200.1300, L500.4050, L100.0100 #### [facility] [address] [place], [address] Hemoglobin (Bld) [Mass/Vol] 13.7 g/dL Normal 13.0-16.5 [facility] Comment on above: Performed By: #### L 3200.1300, L500.4050, L100.0100 #### [facility] [address] [place], [address] IG% 0.500 Normal 0.0-0.9 [facility] Comment on above: Result Comment: IG% - Immature Granulocytes (promyelocytes, myelocytes and metamyelocytes) > 1% indicates that a LEFT SHIFT is Present. Performed By: #### L 3200.1300, L500.4050, L100.0100 #### [facility] [address] [place], [address] Lymphocytes/100 WBC (Bld) 37.3 % Normal 19-41 [facility] Comment on above: Performed By: #### L 3200.1300, L500.4050, L100.0100 #### [facility] [address] [place], [address] MCH (RBC) [Entitic mass] 32.0 pg Normal 27.0-32.0 [facility] Comment on above: Performed By: #### L 3200.1300, L500.4050, L100.0100 #### [facility] [address] [place], [address] MCHC (RBC) [Mass/Vol] 35.1 g/dL Normal 32-36 [facility] Comment on above: Performed By: #### L 3200.1300, L500.4050, L100.0100 #### [facility] [address] [place], [address] MCV (RBC) [Entitic vol] 91.1 fL Normal 80-94 [facility] Comment on above: Performed By: #### L 3200.1300, L500.4050, L100.0100 #### [facility] [address] [place], [address] Monocytes/100 WBC (Bld) 10.1 % High 0-10 [facility] Comment on above: Performed By: #### L 3200.1300, L500.4050, L100.0100 #### [facility] [address] [place], [address] Neutrophils/100 WBC (Bld) 45.2 % Low 47-70 [facility] Comment on above: Performed By: #### L 3200.1300, L500.4050, L100.0100 #### [facility] [address] [place], [address] Nucleated RBC (Bld) [#/Vol] 0 10*3/uL Normal 0-5 [facility] Comment on above: Performed By: #### L 3200.1300, L500.4050, L100.0100 #### [facility] [address] [place], [address] Platelet mean volume (Bld) [Entitic vol] 9.6 fL Normal 6.2-12.0 [facility] Comment on above: Performed By: #### L 3200.1300, L500.4050, L100.0100 #### [facility] [address] [place], [address] Platelets (Bld) [#/Vol] 203 10*3/uL Normal 150-450 [facility] Comment on above: Performed By: #### L 3200.1300, L500.4050, L100.0100 #### [facility] [address] [place], [address] RBC (Bld) [#/Vol] 4.28 10*6/uL Low 4.6-6.2 [facility] Comment on above: Performed By: #### L 3200.1300, L500.4050, L100.0100 #### [facility] [address] [place], [address] RDW SD 41.0 fl Normal 35.1-43.9 [facility] Comment on above: Performed By: #### L 3200.1300, L500.4050, L100.0100 #### [facility] [address] [place], [address] WBC (Bld) [#/Vol] 3.8 10*3/uL Low 4.4-11.0 [facility] Comment on above: Performed By: #### L 3200.1300, L500.4050, L100.0100 #### [facility] [address] [place], [address] Comprehensive Metabolic Prof ilon 05-22-2024 Albumin [Mass/Vol] 3.8 g/dL Normal 3.2-5.0 [facility] Comment on above: Performed By: #### L 3200.1300, L500.4050, L100.0100 #### [facility] [address] [place], [address] Albumin/Globulin [Mass ratio] 1.0 {ratio} Normal 0.9-2.4 [facility] Comment on above: Performed By: #### L 3200.1300, L500.4050, L100.0100 #### [facility] [address] [place], [address] ALK P 76 U/L Normal 45-117 [facility] Comment on above: Performed By: #### L 3200.1300, L500.4050, L100.0100 #### [facility] [address] [place], [address] ALT [Catalytic activity/Vol] 44 U/L Normal 16-61 [facility] Comment on above: Performed By: #### L 3200.1300, L500.4050, L100.0100 #### [facility] [address] [place], [address] AST [Catalytic activity/Vol] 24 U/L Normal 15-37 [facility] Comment on above: Performed By: #### L 3200.1300, L500.4050, L100.0100 #### [facility] [address] [place], [address] Bilirubin [Mass/Vol] 0.30 mg/dL Normal 0.20-1.00 [facility] Comment on above: Result Comment: For patients on eltrombopag therapy, use of Dimension [place] TBIL is not recommended. Performed By: #### L 3200.1300, L500.4050, L100.0100 #### [facility] [address] [place], [address] BUN/CRE 23.7 RATIO High 10-20 [facility] Comment on above: Performed By: #### L 3200.1300, L500.4050, L100.0100 #### [facility] [address] [place], [address] CA,Total 9.8 mg/dL Normal 8.5-10.1 [facility] Comment on above: Performed By: #### L 3200.1300, L500.4050, L100.0100 #### [facility] [address] [place], [address] Chloride [Moles/Vol] 110 mmol/L High 98-107 [facility] Comment on above: Performed By: #### L 3200.1300, L500.4050, L100.0100 #### [facility] [address] [place], [address] CO2 [Moles/Vol] 23.0 mmol/L Normal 21.0-32.0 [facility] Comment on above: Performed By: #### L 3200.1300, L500.4050, L100.0100 #### [facility] [address] [place], [address] Creatinine [Mass/Vol] 1.14 mg/dL Normal 0.70-1.30 [facility] Comment on above: Result Comment: The validity of the calculated GFR GFRAA in patients over 70 years has not been determined. Clinical correlation is essential. Performed By: #### L 3200.1300, L500.4050, L100.0100 #### [facility] [address] [place], [address] EST GFR - AA 85 mL/min Normal >60 [facility] Comment on above: Result Comment: Afri can [place] GFR Calc Performed By: #### L 3200.1300, L500.4050, L100.0100 #### [facility] [address] [place], [address] GAP 7 Normal 5-15 [facility] Comment on above: Performed By: #### L 3200.1300, L500.4050, L100.0100 #### [facility] [address] [place], [address] GFR/1.73 sq M.predicted among non-blacks MDRD (S/P/Bld) [Vol rate/Area] 71 mL/min/{1.73_m2} Normal >60 [facility] Comment on above: Result Comment: Non- GFR Calc Performed By: #### L 3200.1300, L500.4050, L100.0100 #### [facility] [address] [place], [address] Globulin (S) [Mass/Vol] 3.7 g/dL Normal 2.2-4.2 [facility] Comment on above: Performed By: #### L 3200.1300, L500.4050, L100.0100 #### [facility] [address], [address] Glucose [Mass/Vol] 114 mg/dL High 74-106 [facility] Comment on above: Result Comment: Fast ing Glucose result from 100 to 125 mg/dL suggests IMPAIRED HOMEOSTASIS per A.D.A. criteria. Performed By: #### L 3200.1300, L500.4050, L100.0100 #### [facility] [address] [place], [address] Potassium [Moles/Vol] 4.5 mmol/L Normal 3.5-5.1 [facility] Comment on above: Performed By: #### L 3200.1300, L500.4050, L100.0100 #### [facility] [address] [place], [address] Sodium [Moles/Vol] 140 mmol/L Normal 136-145 [facility] Comment on above: Performed By: #### L 3200.1300, L500.4050, L100.0100 #### [facility] [address] [place], [address] T PROT 7.5 g/dL Normal 6.4-8.2 [facility] Comment on above: Performed By: #### L 3200.1300, L500.4050, L100.0100 #### [facility] [address], [address] Urea nitrogen [Mass/Vol] 27 mg/dL High 7-18 [facility] Comment on above: Performed By: #### L 3200.1300, L500.4050, L100.0100 #### [facility] [address] [place], [address] Absolute lymphocyte countOrd ered By: Edward Logan on 08-03-2023 Lymphocytes Auto (Unsp spec) [#/Vol] 1.54 10*3/uL 0.83-4.51 [facility] Automated lymphocyte count a s percentage of total leukocytesOrdered By: Edward Logan on 08-03-2023 Lymphocytes/100 WBC Auto (Unsp spec) 18.9 % 19-41 [facility] Basophil percentageOrdered B y: Edward Logan on 08-03-2023 Basophils/100 WBC (Bld) 0.5 % 0-1 [facility] Bilirubin [Mass/Vol] 0.20 mg/dL 0.20-1.00 [facility] Comment on above: For patients on eltr ombopag therapy, use of Dimension [place] TBIL is not recommended. Chloride [Moles/Vol] 108 mmol/L 98-107 [facility] Cholesterol [Mass/Vol] 227 mg/dL <200 [facility] Comment on above: <200 mg/dL Desirable 200-240 mg/dL Borderline >240 mg/dL High Risk Eosinophils/100 WBC (Bld) 0.9 % 0-5 [facility] Glucose [Mass/Vol] 149 mg/dL 74-106 [facility] Comment on above: Fasting Glucose resu lt greater than or equal to 126 mg/dL suggests DIABETES MELLITUS per A.D.A. criteria. Hemoglobin (Bld) [Mass/Vol] 13.1 g/dL 13.0-16.5 [facility] Monocytes/100 WBC (Bld) 6.8 % 0-10 [facility] Neutrophils (Bld) [#/Vol] 5.9 10*3/uL 2.0-7.7 [facility] Neutrophils/100 WBC (Bld) 72.3 % 47-70 [facility] Potassium [Moles/Vol] 4.0 mmol/L 3.5-5.1 [facility] Protein [Mass/Vol] 7.3 g/dL 6.4-8.2 [facility] Sodium [Moles/Vol] 141 mmol/L 136-145 [facility] Triglyceride [Mass/Vol] 189 mg/dL <199 [facility] Comment on above: The drugs N-Acetylcy steine and Metamizole may falsely depress this assay.Serum Triglycerides Reference Interval Normal <150 mg/dL Borderline high 150 - 199 mg/dL High 200 - 499 mg/dL Very High > or = 500 mg/dL WBC (Bld) [#/Vol] 8.1 10*3/uL 4.4-11.0 [facility] Determination of erythrocyte mean corpuscular volume (MCV)Ordered By: Edward Logan on 08-03-2023 MCV (RBC) [Entitic vol] 95.3 fL 80-94 [facility] Erythrocyte distribution wid th ratioOrdered By: Edward Desmond on 08-03-2023 Erythrocyte distribution width (RBC) [Ratio] 12.6 % 11.6-14.6 [facility] Erythrocyte distribution wid th standard deviationOrdered By: Edward Logan on 08-03-2023 Erythrocyte distribution width (RBC) [Entitic vol] 44.0 fL 35.1-43.9 [facility] Hematocrit Auto (Bld) [Volum e fraction]Ordered By: Edward Logan on 08-03-2023 Hematocrit (Bld) [Volume fraction] 38.7 % 40-54 [facility] Immature granulocytes/100 WB C Auto (Bld)Ordered By: Edward Logan on 08-03-2023 Immature granulocytes/100 WBC (Bld) 0.600 % 0.0-0.9 [facility] Comment on above: IG% - Immature Granu locytes (promyelocytes, myelocytes and metamyelocytes) > 1% indicates that a LEFT SHIFT is Present. Laboratory - Chemistry and C hemistry - challengeOrdered By: Edward Logan on 08-03-2023 Albumin/Globulin [Mass ratio] 1.1 {ratio} 0.9-2.4 [facility] ALP [Catalytic activity/Vol] 93 U/L 45-117 [facility] ALT [Catalytic activity/Vol] 87 U/L 16-61 [facility] Cholesterol in HDL [Mass/Vol] 55 mg/dL >40 [facility] Comment on above: The drugs N-Acetylcy steine and Metamizole may falsely depress this assay. Reference Range HDL <40 mg/dL Low HDL Cholesterol HDL >or= 60 mg/dL High HDL Cholesterol Cholesterol in LDL [Mass/Vol] 134 mg/dL 0-130 [facility] CO2 [Moles/Vol] 27.0 mmol/L 21.0-32.0 [facility] Globulin (S) [Mass/Vol] 3.5 g/dL 2.2-4.2 [facility] Urea nitrogen/Creatinine [Mass ratio] 24.0 mg/mg 10-20 [facility] Laboratory - Hematology and Cell countsOrdered By: Edward Logan on 08-03-2023 MCH (RBC) [Entitic mass] 32.3 pg 27.0-32.0 [facility] MCHC (RBC) [Mass/Vol] 33.9 g/dL 32-36 [facility] Nucleated RBC/100 WBC (Bld) [Ratio] 0 % 0-5 [facility] Platelet mean volume (Bld) [Entitic vol] 9.9 fL 6.2-12.0 [facility] Platelets (Bld) [#/Vol] 203 10*3/uL 150-450 [facility] No Panel InformationOrdered By: Edward Logan on 08-03-2023 Estimated GFR (MDRD) Amer 80 mL/min >60 [facility] Comment on above: GFR Calc Estimated GFR (MDRD) Non-Af Amer 66 mL/min >60 [facility] Comment on above: Non- GFR Calc Prostate Specific Antigen Screen 2.21 ng/mL 0.00-4.00 [facility] Comment on above: This test was perfor med using the TPSA assay method for theSimple-Fill chemistry system. Values obtained with differentassay methods cannot be used interchangably.When changing PSA assays in the course of monitoring apatient, additional sequential testing should be carriedout to confirm baseline values. VLDL Cholesterol 38 mg/dL 5-40 [facility] RBC Auto (Bld) [#/Vol]Ordere d By: Edward Logan on 08-03-2023 RBC (Bld) [#/Vol] 4.06 10*6/uL 4.6-6.2 [facility] Serum or plasma calcium anthony urement (mass/volume)Ordered By: Edward Logan on 08-03-2023 Calcium [Mass/Vol] 8.8 mg/dL 8.5-10.1 [facility] Serum or plasma creatinine m easurement (mass/volume)Ordered By: Edward Logan on 08-03-2023 Creatinine [Mass/Vol] 1.21 mg/dL 0.70-1.30 [facility] Comment on above: The validity of the calculated GFR & GFRAA in patients over 70 years has not been determined. Clinical correlation is essential. Serum or plasma urea nitroge n measurement (mass/volume)Ordered By: Edward Logan on 08-03-2023 Urea nitrogen [Mass/Vol] 29 mg/dL 7-18 [facility] Thin prep Papanicolaou smear with manual screeningOrdered By: Edward Logan on 08-03-2023 Thin prep Papanicolaou smear with manual screening 3.8 g/dL 3.2-5.0 [facility] Thin prep Papanicolaou smear with manual screening 42 U/L 15-37 [facility] Thin prep Papanicolaou smear with manual screening 6 5-15 [facility] Vital Signs Date Time Vital Sign Value Performing Clinician Faci lity 10-05-2024 10:19-0400 Body temperature 98.1 [degF] Edward Logan MD Work Phone: [facility] 10-05-2024 10:19-0400 Diastolic blood pressure 83 mm[Hg] Edward Logan MD Work Phone: [facility] 10-05-2024 10:19-0400 Heart rate 48 /min Edward Logan MD Work Phone: [facility] 10-05-2024 10:19-0400 Respiratory rate 16 /min Edward Logan MD Work Phone: [facility] 10-05-2024 10:19-0400 SaO2% (BldA) [Mass fraction] 99 % Edward Logan MD Work Phone: [facility] 10-05-2024 10:19-0400 Systolic blood pressure 129 mm[Hg] Edward Logan MD Work Phone: [facility] 10-05-2024 08:30-0400 Body height 177.8 cm Edward Logan MD Work Phone: [facility] 10-05-2024 08:30-0400 Body mass index (BMI) [Ratio] 30 kg/m2 Edward Logan MD Work Phone: [facility] 10-05-2024 08:30-0400 Body weight 95 kg Edward Logan MD Work Phone: [facility] Encounters Encounter Date Encounter Type Care Provider Facility Start: 10-05-2024 Non-patient / Non-visit Dr. Sylvie Hernandez MD -[facility] Start: 10-05-2024 ambulatory Faraz Campbell lity:[facility] Start: 10-05-2024 End: 10-05-2024 Admission to same day surgery center Dr. Faraz Hernandez MD -Endoscopy Work Phone: Start: 10-05-2024 End: 10-05-2024 ambulatory Edward Logan MD Work Phone: -Endoscopy Start: 05-22-2024 End: 05-22-2024 ambulatory STEPHANIE REYES Facility:[facility] Start: 08-03-2023 End: 08-03-2023 ambulatory [facility] Work Phone: Start: 08-03-2023 End: 08-03-2023 Patient encounter procedure [facility] Work Phone: Procedures Date Procedure Procedure Detail Performing Clinician Start: 10-05-2024 Colonoscopy Edward cai MD Work Phone: Plan of Treatment Date Care Activity Detail Author Start: 10-05-2024 Patient discharge [facility] Payers Date Payer Category Payer Self-pay [id number] 2024 Unknown [id number] Unknown [id number] Unknown [id number] Social History Date Type Detail Facility Start: 07-06-2015 Tobacco smoking stat [facility] Unknown if ever smoked [facility] Start: 1970 Sex Assigned At Male [facility] Start: 10[facility]05-[facility] Start: 10-05-2024 Tobacco Use Tobacco Use [facility] Goals Date Patient Goal Desired Activity /State Mental Status Date Assessment Result Facility 10-05-2024 Cognitive function Voice/Name;Touch/Dylanki ng [facility] Work Phone: Clinical Notes 10-05-2024 Note Date & Type Note Facility 10-05-2024 Consult note [facility] 10-05-2024 Consult note [facility] 10-05-2024 Evaluation note Diagnosis Onset Date Resolution Screen for colon cancer acute October 05, 2024 8:04am [facility] Work Phone: 1([phone] 510-861206-27-2025 Procedure note [facility] Medical Records Department [address] [place] [address] Colonoscopy Report MR#: [id number] Acct: [id number] Name: SALVADOR YORK Jr. Rep #:[id number] : 1970 54 From: Faraz richards MD PCP: Dr. Edward Logan MD Status:REG SD C Patient Name: Salvador York Procedure Date: 10/05/2024 9:31 AM Date of : 1970 Age: 54 Procedure: Colonoscopy Indications: Screening for colorectal malignant neoplasm Providers: Faraz Hernandez MD Medicines: Propofol per Anesthesia Patient Profile: This is a 54 year old male. Refer to note in patient chart for documentation of history and physical. Last Colonoscopy: none. The patient's first colonoscopy is today. Complications: No immediate complications. Procedure: Pre-Anesthesia Assessment: - Prior to the procedure, a History and Physical was performed, and patient medications and allergies were reviewed. The patient's tolerance of previous anesthesia was also reviewed. The risks and benefits of the procedure and the sedation options and risks were discussed with the patient. All questions were answered, and informed consent was obtained. Prior Anticoagulants: The patient has taken no anticoagulant or antiplatelet agents. After reviewing the risks and benefits, the patient was deemed in satisfactory condition to undergo the procedure. After I obtained informed consent, the scope was passed under direct vision. Throughout the procedure, the patient's blood pressure, pulse, and oxygen saturations were monitored continuously. The Colonoscope was introduced through the anus and advanced to the cecum, identified by appendiceal orifice and ileocecal valve. The colonoscopy was performed without difficulty. The patient tolerated the procedure well. The quality of the bowel preparation was good. The ileocecal valve, appendiceal orifice, and rectum were photographed. Scope In: 9:41:56 AM Scope Withdrawal Time 0 hours 6 minutes 10 seconds Scope Out: 9:54:20 AM Total Procedure Duration Time 0 hours 12 minutes 24 seconds Findings: The entire examined colon appeared normal on direct and retroflexion views. Impression: - The entire examined colon is normal on direct and retroflexion views. - No specimens collected. Recommendation: - Discharge patient to home. - Resume previous diet. - Continue present medications. - Repeat colonoscopy in 10 years for screening purposes. Procedure Code(s): --- Professional --- 66990, Colonoscopy, flexible; diagnostic, including collection of specimen(s) by brushing or washing, when performed (separate procedure) Diagnosis Code(s): --- Professional --- Z12.11, Encounter for screening for malignant neoplasm of colon CPT copyright 2021 [employer]. All rights reserved. The codes documented in this report are preliminary and upon administrative assistant office manager review may be revised to meet current compliance requirements. Faraz Hernandez MD 10/05/2024 9:58:08 AM This report has been signed electronically. Number of Addenda: 0 Note Initiated On: 10/05/2024 9:31 AM 10/05/24957 Date _ Faraz Hernandez MD Cosigner Signature: Date (if indicated) CC: Dr. Faraz Hernandez MD; Dr. Edward Logan MD; Dr. Theo Falk MD ~ Date Dictated: 10/05/24930 Date Transcribed: Privacy Specialist: AC Signed [facility]06-27-2025 Procedure note [facility] Medical Records Department [address] [place] [address] Operative Report - CC Letter MR#: [id number] Acct: [id number] Name: SALVADOR YORK JrPrateek Rep #:[id number] : 1970 54 From: Faraz richards MD PCP: Dr. Edward Logan MD Status:REG SD C 10/05/2024 Theo Falk [address] [place] [address] Re : Colonoscopy procedure for Salvador Jaylen Dear Dr. Falk This procedure was performed on Tuesday, October 05, 2024. My impressions and recommendations are as follows: Impressions : - The entire examined colon is normal on direct and retroflexion views. - No specimens collected. Recommendations : - Discharge patient to home. - Resume previous diet. - Continue present medications. - Repeat colonoscopy in 10 years for screening purposes. My findings are described in the full procedure note, which is enclosed. If I can be of further assistance, please feel free to contact me at Doctor phone number(s): , Work: . Sincerely, Faraz Hernandez MD 10/05/2024 9:58:08 AM This report has been signed electronically. 10/05/24957 Date _ Faraz Hernandez MD Cosigner Signature: Date (if indicated) CC: Dr. Faraz Hernandez MD; Dr. Edward Logan MD; Dr. Theo Falk MD ~ Date Dictated: 10/05/24930 Date Transcribed: Privacy Specialist: MARISA Signed [facility]06-27-2025 History and physical note [facility] Medical Records Department [address] [place] [id number] History & Physical Exam 10/05/24926 MR#: [id number] Acct: [id number] Name: SALVADOR YORK Jr. Rep #:[id number] : 1970 54 From: Faraz richards MD PCP: Dr. Edward Logan MD Status:REG SD C Location: [place] [address] HPI - General HPI Narrative SALVADOR YORK, is a 54 M who presents for screening colonoscopy. Patient has never had a colonoscopy in the past. He denies any abdominal pain or blood in stool. No family history of colon cancer. [facility] Medical History Wears glasses Wears contact lenses Alcohol use History of steroid therapy Arthritis Multiple sclerosis Patient uses snuff Hypertension Home Medications ?Medication ?Instructions ?Recorded ?Last Taken ?Type cholecalciferol (vitamin D3) 1,250 1,250 mcg PO QWEEK 10/03/24 Unknown History mcg (50,000 unit) capsule diphenhydramine HCl 25 mg capsule 25 mg PO Q8H PRN itc thania 10/03/24 Unknown History (Benadryl) olmesartan 20 mg tablet 20 mg PO DAILY 10/03/24 06/11/02 07:15 History prednisone 5 mg tablets in a dose See Rx Instructions PO .COMPLEX 10/03/24 Unknown History pack Allergy/AdvReac Type Severity Reaction Status Date / Time No Known Allergies Allergy Verified 10/05/24 08:28 Surgical History Hx of oral surgery Hx of tonsillectomy Social History Smoking Status: Current every day smoker tobacco type: smokeless tobacco Past Medical/Surgical History Planned Operation Planned Operative Procedure(s): CSCOPE OA Previous Hospitalizations/Surgeries HX Hospitalizations: No Any Problems With Anesthesia: No You/Your Family Experience Fever (Hyperthermia) With Anes: No Cholinesterase deficiency: No Cardiovascular Hx Hypertension: Yes (CONTROLLED WITH MED) Respiratory Hx Chronic Obstructive Pulmonary Disease (COPD): No Hx Asthma: No Hx Emphysema: No Hx Sleep Apnea: No Hx Respiratory Tract Infection/Cold (presently): No Do You Snore Loudly (louder than talking or can be heard): No Do You Often Feel Tired/ Fatigued/ Sleepy Dring Daytime?: No Has Anyone Observed You Stop Breathing During Sleep?: No Result (for STOP score): Negative Smoking Status: Current every day smoker Neurological Does patient have nerve stimulator: No Reproduction : No Miscellaneous Recent Exposure to Contagious Disease: No Allergies No Known Allergies Allergy (Verified 10/05/24 08:28) Discharge Is Pt Admitted From a Senior Care, or a Residential: No After D/C, Where Do you Plan to Go: Return Home Vital Signs Vital Signs Vital Signs: 10/05/24 08:30 10/05/24 08:30 10/05/24 09:23 Temperature 97.5 F L 97.5 F L Temperature Source Temporal Pulse Rate 50 L 50 L Respiratory Rate 16 16 Respiratory Pattern Normal Blood Pressure 114/87 H 114/87 H Blood Pressure Mean 96 Blood Pressure Source Monitor Blood Pressure Position Sitting Blood Pressure Location Right Arm Pulse Ox 100 100 Oxygen Delivery Method Room Air Room Air Weight Weight: 209 lb 7.026 oz Body Mass Index (BMI) 30.0 Physical Exam Const alert and oriented x3 HEENT normocephalic Eyes PERRL Resp normal respiratory effort and normal air movement Cardio regular rate and regular rhythm GI soft to palpation, non-tender and non-distended Extremity normal to inspection Assessment & Plan Assessment/Plan (1) Screen for colon cancer: PLAN: I explained endoscopy in detail to the patient. I explained the risks including but not limited to stroke or heart attack with anesthesia, perforationof the GI tract, bleeding, infection. I explained that any of these could necessitate further emergency surgery. The patient understands and all questions were answered sufficiently. The patient wishes to proceed with procedure. Faraz Hernandez MD Pager: [facility] [address] [place] [address], [address] [place] [address] Office: Surgery Risks - Colonoscopy Risks Include but are not Limited To: Risks include but are not limited to: Bleeding, perforation requiring further surgery, inability to complete colonoscopy requiring barium enema. 10/05/24927 Cosigner Signature (if applicable): CC: Dr. Faraz Hernandez MD; Dr. Edward Logan MD~ Signed [facility]06-27-2025 Consult note [facility] Medical Records Department [address] [place] [address] Pre-Anesthesia Evaluation 10/05/24915 MR#: [id number] Acct: [id number] Name: SALVADOR YORK . Rep #:[id number] : 1970 54 From: Ramon Morgan MD PCP: Dr. Edward Logan MD Status:REG SD C Y Race: C Location: [facility]17-1 ASA Classification* ASA Classification ASA Classification: 2 Assessment & Plan Anesthesia* Anesthesia Assessment Anesthesia Assessment: Discussed sedation and/or anesthesia options, risks, benefits, and alternatives with patient/parents/legal guardian/POA. Questions invited. The patient/parents/legal guardian/POA seems to understand and agrees to proceedwith anesthesia plan. Reviewed the physical assessment, medical history, allergy history and patient home medications list prior to surgery/procedure/anesthetic and documented any changes. Performed airway and anesthesia risk assessments. Anesthesia Type Anesthesia Type: MAC History Source History Obtained from:: Patient and Chart Anesthesia Focused Assessment* Temperature: 97.5 F Pulse Rate: 50 Blood Pressure: 114/87 Respiratory Rate: 16 Pulse Ox: 100 Oxygen Delivery Method: Room Air Airway Assessment Mouth opens: >3 cm Mallampati Score: II Teeth Condition: Caps/Crowns (Patient has several crowns. They are tight.) and Implants (Patient has a couple implants. They are tight.) Neck Range of motion (ROM): Full ROM Labs Anesthesia Preop lab: CBC WBC 3.8 K/mm3 (4.4-11.0) L 05/22/24 07:06 05/22/24 RBC 4.28 M/mm3 (4.6-6.2) L 05/22/24 07:06 05/22/24 Hgb 13.7 g/dL (13.0-16.5) 05/22/24 07:06 05/22/24 Hct 39.0 % (40-54) L 05/22/24 07:06 05/22/24 Plt Count 203 K/mm3 (150-450) 05/22/24 07:06 05/22/24 CHEMISTRY Potassium 4.5 mmol/L (3.5-5.1) 05/22/24 07:06 05/22/24 Sodium 140 mmol/L (136-145) 05/22/24 07:06 05/22/24 Magnesium 2.2 mg/dL (1.8-2.4) 01/24/17 12:32 01/24/17 BUN 27 mg/dL (7-18) H 05/22/24 07:06 05/22/24 Creatinine 1.14 mg/dL (0.70-1.30) 05/22/24 07:06 05/22/24 Glucose 114 mg/dL (74-106) H 05/22/24 07:06 05/22/24 TSH 1.86 uIU/mL (0.358-3.74) 08/20/22 10:58 COAG Pre-Assessment Diagnosis/Proposed Procedure Planned Operative Procedure(s): CSCOPE OA Anesthesia History Anesthesia History - public services assistant: Anesthesia History - public services assistant Hx Hospitalization No 10/03/24 13:47 Any Problems With Anesthesia No 10/03/24 13:47 Cholinesterase deficiency No 10/03/24 13:47 You/Your Family Experience No 10/03/24 13:47 fever (hyperthermia) with Relationship Recent Exposure to Contagious No 10/05/24 08:30 Disease Does patient have nerve No 10/03/24 13:47 stimulator Patient instructed to have device shut off --Does patient have Pacemaker No 10/05/24 08:30 or ICD? When Was Last Pacemaker Check QUESTION #4 FULL TEXT: You/Your Family Experience fever (hyperthermia) with Anesthesia Last Oral Intake Last Oral intake: Last Oral Intake NPO since 07:15 10/05/24 08:30 Meds taken in AM with sips of Yes 10/05/24 08:30 water? Meds patient instructed to take am of surgery Any additional information?: Yes Meds taken in AM with sips of water?: Yes PONV PONV - public services assistant: PONV - public services assistant Female No 10/03/24 13:47 HX of Motion Sickness No 10/03/24 13:47 HX of N/V After Surgery No 10/03/24 13:47 Non-Smoker No 10/03/24 13:47 Duration of Surgery greater No 10/03/24 13:47 than 60 minutes Number of Risk Factors PONV Score Height & Weight Height & Weight: Anesthesia: Height & Weight Height 5 ft 10 in 10/05/24 08:30 Weight: 95 kg 10/05/24 08:30 Body Mass Index (BMI) 30.0 10/05/24 08:30 Respiratory Assessment Respiratory Assessment - public services assistant: Respiratory Tract Infection Hx - public services assistant Hx Respiratory Tract Infection No 10/03/24 13:47 STOP Sleep Apnea STOP Sleep Apnea - public services assistant: STOP Sleep Apnea - public services assistant Hx Hypertension Yes: CONTROLLED WITH MED 10/03/24 13:47 Hx Sleep Apnea No 10/03/24 13:47 CPAP BIPAP Do you snore loudly (louder No 10/03/24 13:47 than talking or can be heard Do you often feel tired/ No 10/03/24 13:47 fatigued/ sleepy during daytime? Has anyone observed you stop No 10/03/24 13:47 breathing during sleep? STOP Results Negative 10/03/24 13:47 QUESTION #5 FULL TEXT : Do you snore loudly (louder than talking or can be heard through closeddoors)? 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 - public services assistant: 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 - public services assistant Tobacco Use Smoking Status Current every day smoker 10/03/24 13:47 Hx Tobacco Use Yes 10/03/24 13:47 Years Smoking Packs Smoked per Day Smoking Cessation Date was within the last 15 years Hx Smoking Cessation Date Hx Smoking Cessation Counseling Any additional information?: Yes Tobacco Use: Chew (Patient did not chew today.) Hematologic Medial History Hematologic Hx - public services assistant: Hematologic Medical Hx - documentation analyst Hx of Blood Transfusion No 10/03/24 13:47 Hx of Transfusion in last 3 No 10/03/24 13:47 Months Date of Last Transfusion (if within last 3 months) Ever experience any problems No 10/03/24 13:47 with transfusion(s)? Specify any problems Hx of Preganancy in last 3 N/A 10/03/24 13:47 Months Nurse Filling Out Transfusion DSCHRIBER 10/03/24 13:47 & Questions: Date: 10/03/24 10/03/24 13:47 Time: 13:48 10/03/24 13:47 Patient unable to answer at this time (ie. confused, unrespo /Reproduction History /Reproductive History - public services assistant: /Reproductive Hx- public services assistant Hx Now No 10/03/24 13:47 Gestational Age (in weeks): EDC: Hx Hx Para Hx Section SAB No 10/03/24 13:47 Active Medications Active Medications: Current Medications Generic Name Dose Route Start Last Admin Trade Name Freq PRN Reason Stop Dose Admin Lactated Ringer's 1,000 mls @ 15 mls/hr 10/05/24 08:15 10/05/24 08:35 IV 15 mls/hr .Q48H ABA Administration PFSH Medical History Wears glasses Wears contact lenses Alcohol use History of steroid therapy Arthritis Multiple sclerosis Patient uses snuff Hypertension Home Medications ?Medication ?Instructions ?Recorded ?Last Taken ?Type cholecalciferol (vitamin D3) 1,250 1,250 mcg PO QWEEK 10/03/24 Unknown History mcg (50,000 unit) capsule diphenhydramine HCl 25 mg capsule 25 mg PO Q8H PRN itc thania 10/03/24 Unknown History (Benadryl) olmesartan 20 mg tablet 20 mg PO DAILY 10/03/24 0611/02 07:15 History prednisone 5 mg tablets in a dose See Rx Instructions PO .COMPLEX 10/03/24 Unknown History pack Allergy/AdvReac Type Severity Reaction Status Date / Time No Known Allergies Allergy Verified 10/05/24 08:28 Surgical History Hx of oral surgery Hx of tonsillectomy Social History Smoking Status: Current every day smoker tobacco type: smokeless tobacco Review of Systems (Anesthesia) ROS Narrative System reviewed and no additional complaints, except as documented. 10/05/24922 marina JOHNSON> Date _ Ramon Morgan MD Cosigner Signature: Date CC: ~ [facility] Raomn Morgan [facility] Note Date/Time October 05, 2024 9:23 am [facility] Medical Records Department [address] [place] [address] Pre-Anesthesia Evaluation 10/05/24915 MR#: [id number] Acct: [id number] Name: SALVADOR YORK Rep #:[id number] : 1970 54 From: Ramon Morgan MD PCP: Dr. Edward Logan MD Status:REG SD C Y Race: C Location: [facility] ASA Classification* ASA Classification ASA Classification: 2 Assessment & Plan Anesthesia* Anesthesia Assessment Anesthesia Assessment: Discussed sedation and/or anesthesia options, risks, benefits, and alternatives with patient/parents/legal guardian/POA. Questions invited. The patient/parents/legal guardian/POA seems to understand and agrees to proceedwith anesthesia plan. Reviewed the physical assessment, medical history, allergy history and patient home medications list prior to surgery/procedure/anesthetic and documented any changes. Performed airway and anesthesia risk assessments. Anesthesia Type Anesthesia Type: MAC History Source History Obtained from:: Patient and Chart Anesthesia Focused Assessment* Temperature: 97.5 F Pulse Rate: 50 Blood Pressure: 114/87 Respiratory Rate: 16 Pulse Ox: 100 Oxygen Delivery Method: Room Air Airway Assessment Mouth opens: >3 cm Mallampati Score: II Teeth Condition: Caps/Crowns (Patient has several crowns. They are tight.) and Implants (Patient has a couple implants. They are tight.) Neck Range of motion (ROM): Full ROM Labs Anesthesia Preop lab: CBC WBC 3.8 K/mm3 (4.4-11.0) L 05/22/24 07:06 05/22/24 RBC 4.28 M/mm3 (4.6-6.2) L 05/22/24 07:06 05/22/24 Hgb 13.7 g/dL (13.0-16.5) 05/22/24 07:06 05/22/24 Hct 39.0 % (40-54) L 05/22/24 07:06 05/22/24 Plt Count 203 K/mm3 (150-450) 05/22/24 07:06 05/22/24 CHEMISTRY Potassium 4.5 mmol/L (3.5-5.1) 05/22/24 07:06 05/22/24 Sodium 140 mmol/L (136-145) 05/22/24 07:06 05/22/24 Magnesium 2.2 mg/dL (1.8-2.4) 01/24/17 12:32 01/24/17 BUN 27 mg/dL (7-18) H 05/22/24 07:06 05/22/24 Creatinine 1.14 mg/dL (0.70-1.30) 05/22/24 07:06 05/22/24 Glucose 114 mg/dL (74-106) H 05/22/24 07:06 05/22/24 TSH 1.86 uIU/mL (0.358-3.74) 08/20/22 10:58 COAG Pre-Assessment Diagnosis/Proposed Procedure Planned Operative Procedure(s): CSCOPE OA Anesthesia History Anesthesia History - public services assistant: Anesthesia History - public services assistant Hx Hospitalization No 10/03/24 13:47 Any Problems With Anesthesia No 10/03/24 13:47 Cholinesterase deficiency No 10/03/24 13:47 You/Your Family Experience No 10/03/24 13:47 fever (hyperthermia) with Relationship Recent Exposure to Contagious No 10/05/24 08:30 Disease Does patient have nerve No 10/03/24 13:47 stimulator Patient instructed to have device shut off --Does patient have Pacemaker No 10/05/24 08:30 or ICD? When Was Last Pacemaker Check QUESTION #4 FULL TEXT: You/Your Family Experience fever (hyperthermia) with Anesthesia Last Oral Intake Last Oral intake: Last Oral Intake NPO since 07:15 10/05/24 08:30 Meds taken in AM with sips of Yes 10/05/24 08:30 water? Meds patient instructed to take am of surgery Any additional information?: Yes Meds taken in AM with sips of water?: Yes PONV PONV - public services assistant: PONV - public services assistant Female No 10/03/24 13:47 HX of Motion Sickness No 10/03/24 13:47 HX of N/V After Surgery No 10/03/24 13:47 Non-Smoker No 10/03/24 13:47 Duration of Surgery greater No 10/03/24 13:47 than 60 minutes Number of Risk Factors PONV Score Height & Weight Height & Weight: Anesthesia: Height & Weight Height 5 ft 10 in 10/05/24 08:30 Weight: 95 kg 10/05/24 08:30 Body Mass Index (BMI) 30.0 10/05/24 08:30 Respiratory Assessment Respiratory Assessment - public services assistant: Respiratory Tract Infection Hx - public services assistant Hx Respiratory Tract Infection No 10/03/24 13:47 STOP Sleep Apnea STOP Sleep Apnea - public services assistant: STOP Sleep Apnea - public services assistant Hx Hypertension Yes: CONTROLLED WITH MED 10/03/24 13:47 Hx Sleep Apnea No 10/03/24 13:47 CPAP BIPAP Do you snore loudly (louder No 10/03/24 13:47 than talking or can be heard Do you often feel tired/ No 10/03/24 13:47 fatigued/ sleepy during daytime? Has anyone observed you stop No 10/03/24 13:47 breathing during sleep? STOP Results Negative 10/03/24 13:47 QUESTION #5 FULL TEXT : Do you snore loudly (louder than talking or can be heard through closed doors)? 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 - public services assistant: 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 - public services assistant Tobacco Use Smoking Status Current every day smoker 10/03/24 13:47 Hx Tobacco Use Yes 10/03/24 13:47 Years Smoking Packs Smoked per Day Smoking Cessation Date was within the last 15 years Hx Smoking Cessation Date Hx Smoking Cessation Counseling Any additional information?: Yes Tobacco Use: Chew (Patient did not chew today.) Hematologic Medial History Hematologic Hx - public services assistant: Hematologic Medical Hx - documentation analyst Hx of Blood Transfusion No 10/03/24 13:47 Hx of Transfusion in last 3 No 10/03/24 13:47 Months Date of Last Transfusion (if within last 3 months) Ever experience any problems No 10/03/24 13:47 with transfusion(s)? Specify any problems Hx of Preganancy in last 3 N/A 10/03/24 13:47 Months Nurse Filling Out Transfusion DSCHRIBER 10/03/24 13:47 & Questions: Date: 10/03/24 10/03/24 13:47 Time: 13:48 10/03/24 13:47 Patient unable to answer at this time (ie. confused, unrespo /Reproduction History /Reproductive History - public services assistant: /Reproductive Hx- public services assistant Hx Now No 10/03/24 13:47 Gestational Age (in weeks): EDC: Hx Hx Para Hx Section SAB No 10/03/24 13:47 Active Medications Active Medications: Current Medications Generic Name Dose Route Start Last Admin Trade Name Freq PRN Reason Stop Dose Admin Lactated Ringer's 1,000 mls @ 15 mls/hr 10/05/24 08:15 10/05/24 08:35 IV 15 mls/hr .Q48H ABA Administration PFSH Medical History Wears glasses Wears contact lenses Alcohol use History of steroid therapy Arthritis Multiple sclerosis Patient uses snuff Hypertension Home Medications ?Medication ?Instructions ?Recorded ?Last Taken ?Type cholecalciferol (vitamin D3) 1,250 1,250 mcg PO QWEEK 10/03/24 Unknown History mcg (50,000 unit) capsule diphenhydramine HCl 25 mg capsule 25 mg PO Q8H PRN itc thania 10/03/24 Unknown History (Benadryl) olmesartan 20 mg tablet 20 mg PO DAILY 10/03/2409/10 07:15 History prednisone 5 mg tablets in a dose See Rx Instructions PO .COMPLEX 10/03/24 Unknown History pack Allergy/AdvReac Type Severity Reaction Status Date / Time No Known Allergies Allergy Verified 10/05/24 08:28 Surgical History Hx of oral surgery Hx of tonsillectomy Social History Smoking Status: Current every day smoker tobacco type: smokeless tobacco Review of Systems (Anesthesia) ROS Narrative System reviewed and no additional complaints, except as documented. 10/05/24922 <Electronically signed by Ramon gray MD> Date _ Ramon Morgan MD Cosigner Signature: Date CC: ~ Signed [facility] Work Phone: Consult note Author Elsie Lo [facility] Note Date/Time October 05, 2024 10:4 2am [facility] Medical Records Department [address] [place] [address] Anesthesia Postop Eval I 10/05/24958 MR#: [id number] Acct: [id number] Name: SALVADOR YORK Jr. Rep #:[id number] : 1970 54 From: Elsie Lo CRNA PCP: Dr. Edward Logan MD Status:REG SD C Y Race: C Location: [place] [address] Anesthesia: Postop Eval I Current Vital Signs Temperature: 97.1 F Pulse Rate: 49 Blood Pressure: 85/44 Respiratory Rate: 18 Pulse Ox: 96 Assessment Airway patent: Yes Spontaneous unlabored respirations: Yes nausea: No Vomiting: No Anesthesia Complication: No Fluid Hydration Crystalloid volume administer (ml): 500 Total IV fluid infused: 500 Progress Note Anesthesia document: Postop Eval 1 completed: Yes 10/05/2459 <Electronically signed by Elsie baltazar CRNA> Date _ Elsie Lo CRNA Cosigner Signature: Date CC: ~ Signed [facility] Work Phone: Consult note Author [facility] Note Date/Time October 05, 2024 10:2 8am [facility] Medical Records Department [address] [place] [address] Anesthesia Postop Eval II 10/05/24 1027 MR#: [id number] Acct: [id number] Name: SALVADOR YORK Jr. Rep #:[id number] : 1970 54 From: Elsie Lo MATERIALS ASSOCIATE PCP: Dr. Edward Logan MD Status:REG SD C Y Race: C Location: [place] [address] Anesthesia Postop Eval I Sum Postop Eval Completion status Anesthesia document: Postop Eval 1 completed: Yes Anesthesia Postop Eval I Summary Anesthesia Postop Eval I Summary: Anesthesia Postop Eval I: Assessment Summary Airway patent Yes 10/05/24 09:59 MATERIALS ASSOCIATE.CSIR Spontaneous unlabored Yes 10/05/24 09:59 MATERIALS ASSOCIATE.CSIR respirations Mental status nausea No 10/05/24 09:59 MATERIALS ASSOCIATE.CSIR Vomiting No 10/05/24 09:59 MATERIALS ASSOCIATE.CSIR Anesthesia Postop Eval I: Fluid Summary Crystalloid volume administer 500 10/05/24 09:59 MATERIALS ASSOCIATE.CSIR (ml) Colloids volume administered ( ml) Blood Product volume administered (ml) Total IV fluid infused 500 10/05/24 09:59 MATERIALS ASSOCIATE.CSIR Anesthesia Postop Eval I: Summary Notes Anesthesia Complication No 10/05/24 09:59 MATERIALS ASSOCIATE.CSIR Anesthesia Complication Comment: Post-operative progress note Anesthesia: Postop Eval II Evaluation Mental status: Awake Pain Level: 0 nausea: No Vomiting: No 10/05/24 1028 <Electronically signed by Elsie baltazar CRNA> Date _ Elsie Lo CRNA Cosigner Signature: Date CC: ~ Signed [facility] Work Phone: Evaluation noteNo assessment information available [facility] Work Phone: History and physical note Author Faraz Hernandez [facility] Note Date/Time October 05, 2024 9:28 am [facility] Medical Records Department [address] [place] [address] History & Physical Exam 10/05/24926 MR#: [id number] Acct: [id number] Name: SALVADOR YORK JARRETT Kelly. Rep #:[id number] : 1970 54 From: Faraz richards MD PCP: Dr. Edward Logan MD Status:REG SD C Location: [place] [address] HPI - General HPI Narrative SALVADOR YORK, is a 54 M who presents for screening colonoscopy. Patient has never had a colonoscopy in the past. He denies any abdominal pain or blood in stool. No family history of colon cancer. PFSH Medical History Wears glasses Wears contact lenses Alcohol use History of steroid therapy Arthritis Multiple sclerosis Patient uses snuff Hypertension Home Medications ?Medication ?Instructions ?Recorded ?Last Taken ?Type cholecalciferol (vitamin D3) 1,250 1,250 mcg PO QWEEK 10/03/24 Unknown History mcg (50,000 unit) capsule diphenhydramine HCl 25 mg capsule 25 mg PO Q8H PRN itc thania 10/03/24 Unknown History (Benadryl) olmesartan 20 mg tablet 20 mg PO DAILY 10/03/2409/10 07:15 History prednisone 5 mg tablets in a dose See Rx Instructions PO .COMPLEX 10/03/24 Unknown History pack Allergy/AdvReac Type Severity Reaction Status Date / Time No Known Allergies Allergy Verified 10/05/24 08:28 Surgical History Hx of oral surgery Hx of tonsillectomy Social History Smoking Status: Current every day smoker tobacco type: smokeless tobacco Past Medical/Surgical History Planned Operation Planned Operative Procedure(s): CSCOPE OA Previous Hospitalizations/Surgeries HX Hospitalizations: No Any Problems With Anesthesia: No You/Your Family Experience Fever (Hyperthermia) With Anes: No Cholinesterase deficiency: No Cardiovascular Hx Hypertension: Yes (CONTROLLED WITH MED) Respiratory Hx Chronic Obstructive Pulmonary Disease (COPD): No Hx Asthma: No Hx Emphysema: No Hx Sleep Apnea: No Hx Respiratory Tract Infection/Cold (presently): No Do You Snore Loudly (louder than talking or can be heard): No Do You Often Feel Tired/ Fatigued/ Sleepy Dring Daytime?: No Has Anyone Observed You Stop Breathing During Sleep?: No Result (for STOP score): Negative Smoking Status: Current every day smoker Neurological Does patient have nerve stimulator: No Reproduction : No Miscellaneous Recent Exposure to Contagious Disease: No Allergies No Known Allergies Allergy (Verified 10/05/24 08:28) Discharge Is Pt Admitted From a Senior Care, or a Residential: No After D/C, Where Do you Plan to Go: Return Home Vital Signs Vital Signs Vital Signs: 10/05/24 08:30 10/05/24 08:30 10/05/24 09:23 Temperature 97.5 F L 97.5 F L Temperature Source Temporal Pulse Rate 50 L 50 L Respiratory Rate 16 16 Respiratory Pattern Normal Blood Pressure 114/87 H 114/87 H Blood Pressure Mean 96 Blood Pressure Source Monitor Blood Pressure Position Sitting Blood Pressure Location Right Arm Pulse Ox 100 100 Oxygen Delivery Method Room Air Room Air Weight Weight: 209 lb 7.026 oz Body Mass Index (BMI) 30.0 Physical Exam Const alert and oriented x3 HEENT normocephalic Eyes PERRL Resp normal respiratory effort and normal air movement Cardio regular rate and regular rhythm GI soft to palpation, non-tender and non-distended Extremity normal to inspection Assessment & Plan Assessment/Plan (1) Screen for colon cancer: PLAN: I explained endoscopy in detail to the patient. I explained the risks including but not limited to stroke or heart attack with anesthesia, perforationof the GI tract, bleeding, infection. I explained that any of these could necessitate further emergency surgery. The patient understands and all questions were answered sufficiently. The patient wishes to proceed with procedure. Faraz Hernandez MD Pager: [facility] [address] [place] [address], [address] [place] [address] Office: Surgery Risks - Colonoscopy Risks Include but are not Limited To: Risks include but are not limited to: Bleeding, perforation requiring further surgery, inability to complete colonoscopy requiring barium enema. 10/05/24927 <Electronically signed by Faraz Hernandez MD> Cosigner Signature (if applicable): CC: Dr. Faraz Hernandez MD; Dr. Edward Logan MD~ Signed [facility] Work Phone: Reason for referral (narrative)No reason for referral information availableWSelect [facility] [place] Work Phone: Summary Purpose Family History No Family History Records Found Advance Directives Advance Directive Response Recorded Date/ Time Do you have a Healthcare Power of Integration Software Engineer? Yes October 03, 2024 1:47pm Chief Complaint and Reason for Visit Reason for Visit Admit Date Screen for colon cancer October 05, 2024 8:04am Additional Source Comments Care Teams (unrecognized sec tion and content) Team Status: Active Member Role Status Dates Dr. Theo Falk MD Family Provider Active Dr. Theo Falk MD Primary Care Provider Active Team Status: Inactive Member Role Status Dates Dr. Theo Falk MD Primary Care Provide r, Attending Provider, Referring Provider Active Team Status: Active Member Role/Relationship Status Dates Edward Logan MD Primary Care Provider Active Team Status: Inactive Member Role/Relationship Status Dates Dr. Faraz Hernandez MD Attending Provider Active Start: October 05, 2024 End: October 05, 2024 Edward Logan MD Primary Care Provider Active St art: October 05, 2024 End: October 05, 2024 Edward Logan MD Referring Provider Active Start : October 05, 2024 End: October 05, 2024 Team Status: Active Member Role/Relationship Status Dates Dr. Faraz Hernandez MD Attending Provider Active Start: October 05, 2024 Dr. Faraz Hernandez MD Other Provider Active Start: October 05, 2024 Edward Logan MD Primary Care Provider Active St art: October 05, 2024 Edward Logan MD Referring Provider Active Start : October 05, 2024 Goals (unrecognized section and content) Goals may be documented in a n alternate section (unrecognized sect ion and content) No Status Records Found INFORMATION SOURCE (unrecogn ized section and content) DATE CREATED AUTHOR 10/04/2024 [facility] FOR RECORDS PERTAINING TO PATIENTS WHO ARE OR HAVE BEEN ENROLLED IN A CHEMICAL DEPENDENCY/SUBSTANCEABUSE PROGRAM, SOME INFORMATION MAY BE OMITTED. This clinical summary was aggregated from multiple sources. Caution should be exercised in using it in the provision of clinical care. This summary normalizes information from multiple sources, and as a consequence, information in this document may materially change the coding, format and clinical context of patient data. In addition, data may be omitted in some cases. CLINICAL DECISIONS SHOULD BE BASED ON THE PRIMARY CLINICAL RECORDS. [employer] provides no warranty or guarantee of the accuracy or completeness of information in this document.
== END 2024-10-05 10:42 | disposition home or self-care (01) ==
LOC: EN 08:04 → AC 08:06
PROVIDERS: PCP Family Medicine; Referring Provider Family Medicine; Visit Provider Surgery
PROC: 0DJD8ZZ Inspection of Lower Intestinal Tract, Via Natural or Artificial Opening Endoscopic (ICD-10-PCS; CPT 45378; principal; 2024-10-05 09:10)
DX: Z12.11 Encounter for screening for malignant neoplasm of colon (principal); G35 Multiple sclerosis; I10 Essential (primary) hypertension; F17.220 Nicotine dependence, chewing tobacco, uncomplicated
CPT/HCPCS: 45378; J2405

== ENCOUNTER → 2024-10-23 | Outpatient (CLI) | payer OTHER, SELFPAY ==
[2024-10-23 17:51] LABS: Hematocrit 36.8 % (40-54); Hemoglobin 12.7 g/dL (13.0-16.5); Immature Granulocytes Count 0.010 X10^3/uL (0.0-0.0); Mean Corp Hgb Conc 34.5 g/dL (32-36); Mean Corpuscular Volume 92.9 fL (80-94); Mean Platelet Vol. 9.8 fl (6.2-12.0); NRBC Flagged by Analyzer 0 % (0-5); Platelet Count 205 K/mm3 (150-450); RBC Distribution Width CV 12.6 % (11.6-14.6); RBC Distribution Width SD 43.3 fl (35.1-43.9); Red Blood Count 3.96 M/mm3 (4.6-6.2); White Blood Count 4.6 K/mm3 (4.4-11.0)
[2024-10-23 18:33] LABS: AST(SGOT) 29 U/L (<=37); Alanine Aminotransfer ALT/SGPT 39 U/L (<=46); Albumin, Serum 4.5 g/dL (3.5-5.0); Alkaline Phosphatase 92 U/L (40-129); Anion Gap 12 (5-15); BUN 28 mg/dL (4-19); BUN/Creat Ratio 25.9 RATIO (10-20); Calcium,Total 9.4 mg/dL (7.6-11.0); Carbon Dioxide 21.2 mmol/L (21.0-32.0); Chloride 109 mmol/L (98-108); Globulin 2.7 g/dL (2.2-4.2); Glucose 96 mg/dL (70-99); PSA,Total- Diagnostic 2.37 ng/mL (0.00-4.00); Potassium 4.4 mmol/L (3.3-5.1)
[2024-10-25 05:07] LABS: Immunoglobulin G 1024 mg/dL (603-1613)
== END | disposition home or self-care (01) ==
LOC: MTLAB 15:28
PROVIDERS: PCP Family Medicine; Referring Provider Family Medicine; Visit Provider Family Medicine
DX: G35 Multiple sclerosis (principal); Z79.899 Other long term (current) drug therapy; I10 Essential (primary) hypertension
CPT/HCPCS: 36415; 80053; 82784; 83036; 84153; 85025

== ENCOUNTER → 2025-04-10 | Outpatient (CLI) | payer OTHER, SELFPAY ==
--- OUTSIDE RECORDS SUMMARY | 2025-04-10 13:20 | XMS RPT_ITS | CCD ---
Author Organization [facility] Care Team Providers Care Gas Fitter Name Role Phone Mary JOHNSON, Dr. Ruth Attending Provider [phone] Desmond JOHNSON, Edward Primary Care Provider [phone] Desmond JOHNSON, Edward Referring Provider [phone] 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 Other Provider STEPHANIE REYES Consulting Unavailable Edward Edwards Primary Care Unavailable Edward Edwards Attending Unavailable Edward Edwards Referring Unavailable Desmond, Edward Referring Unavailable Faraz Hernandez Attending Unavailable Desmond, Edward Primary Care Unavailable Theo Falk Primary Care Unavailable STEPHANIE REYES Attending Unavailable STEPHANIE REYES Referring Unavailable Faraz Hernandez Consulting Unavailable Faraz Hernandez Attending Unavailable Desmond, Edward Primary Care Unavailable Desmond, Edward Referring Unavailable Medications Current Medications Medication Drug Class(es) Dates Sig (Normalized) Sig (Original) cholecalciferol 1.25 mg oral capsule (2 sources) Vitamin D Start: 10-03-2024 take 1 capsule by mouth every week Cholecalciferol (Vitamin D3) 1,250 mcg (50,000 unit) capsule Active 1250 ug PO EVERY WEEK October 03, 2024 12:00am diphenhydrAMINE hydrochloride 25 mg oral capsule (2 sources) Histamine-1 Receptor Antagonist Start: 10-03-2024 take 1 capsule by mouth every eight hours as needed Diphenhydramine Hcl (Benadryl) 25 mg capsule Active 25 mg PO Q8H as needed for itching October 03, 2024 12:00am olmesartan medoxomil 20 mg oral tablet (2 sources) Angiotensin 2 Receptor Nomi Start: 10-03-2024 take 1 tablet by mouth once daily Olmesartan 20 mg tablet Active 20 mg PO DAILY October 03, 2024 12:00am predniSONE 5 mg oral tablet (2 sources) Start: 10-03-2024 Prednisone 5 mg tablets,dose pack Active 0 PO .COMPLEX October 03, 2024 12:00am prednisone 5 mg: take 8 tablets (40 mg) on Day 1; 7 tablets (35 mg) on Day 2; then decrease by 1 tablet every day until finished Completed/Discontinued Medications Medication Drug Class(es) Dates Sig (Normalized) Sig (Original) acyclovir 800 mg oral tablet (3 sources) Herpesvirus Nucleoside Analog DNA Polymerase Inhibitor, [...] Classification Problem Date Documented Da te Episodic/Chronic Multiple sclerosis (1 source) Multiple sclerosis; Translations: [Multiple sclerosis] Onset: 10-27-2024 Chronic Other aftercare (1 source) Other bander hand (current) drug therapy; Translations: [Other bander hand (current) drug therapy] Onset: 10-24-2024 Episodic Other screening for suspected conditions (not mental disorders or infectious disease) (6 sources) Patient encounter status; Translations: [Encounter for screening for malignant neoplasm of colon] Onset: 10-17-2024 10-05-2024 Episodic Results Test Name Value Interpretation Reference Range Facility Immunoglobulin Obi 5 IMMUNOGLOB G QN 1024 mg/dL Normal 603-1613 [facility] Comment on above: Result Comment: Perf ormed at: - [facility] [address] [id number] Filament Tester: Matias Adam PhD, Phone: [phone] Performed By: #### L 100.0100, L3200.1300, L501.0185, L500.4050, L501.9940 #### [facility] [place], [address] Absolute lymphocyte countOrd ered By: Edward Edwards on 10-23-2024 Lymphocytes Auto (Unsp spec) [#/Vol] 1.35 10*3/uL 0.83-4.51 [facility] Absolute neutrophil countOrd ered By: Edward Edwards on 10-23-2024 Neutrophils (Bld) [#/Vol] 2.7 10*3/uL 2.0-7.7 [facility] Anion gap in Serum or Plasma Ordered By: dEward Edwards on 10-23-2024 Anion gap [Moles/Vol] 12 mmol/L 08-23 [facility] Automated lymphocyte count a s percentage of total leukocytesOrdered By: [facility] 10-23-2024 Lymphocytes/100 WBC Auto (Unsp spec) 29.6 % [facility] BUN/creatinine ratioOrdered By: [facility] on 10-23-2024 Urea nitrogen/Creatinine [Mass ratio] 25.9 mg/mg High - [facility] Basophil percentageOrdered B y: Edward Edwards on 10-23-2024 Basophils/100 WBC (Bld) 1.1 % High 0-1 [facility] Bilirubin, totalOrdered By: Edward Edwards on 10-23-2024 Bilirubin [Mass/Vol] 0.21 mg/dL 0.00-1.30 [facility] CBC W/Diff, Automatedon 10-09 Absolute Lymph 1.35 X10 3/uL Normal 0.83-4.51 [facility] Comment on above: Performed By: #### L 100.0100, L3200.1300, L501.9985, L500.4050, L501.9940 #### [facility] [address] [place], [address] Absolute Neut 2.7 X10 3/uL Normal 2.0-7.7 [facility] Comment on above: Performed By: #### L 100.0100, L3200.1300, L501.9985, L500.4050, L501.9940 #### [facility] [address] [place], [address] Basophils/100 WBC (Bld) 1.1 % High 0-1 [facility] Comment on above: Performed By: #### L 100.0100, L3200.1300, L501.9985, L500.4050, L501.9940 #### [facility] [address] [place], [address] Eosinophils/100 WBC (Bld) 2.9 % Normal 0-5 [facility] Comment on above: Performed By: #### L 100.0100, L3200.1300, L501.9985, L500.4050, L501.9940 #### [facility] [address] [place], [address] Erythrocyte distribution width (RBC) [Ratio] 12.6 % Normal 11.6-14.6 [facility] Comment on above: Performed By: #### L 100.0100, L3200.1300, L501.9985, L500.4050, L501.9940 #### [facility] [address] [place], [address] Hematocrit (Bld) [Volume fraction] 36.8 % Low 40-54 [facility] Comment on above: Performed By: #### L 100.0100, L3200.1300, L501.9985, L500.4050, L501.9940 #### [facility] [address] [place], [address] Hemoglobin (Bld) [Mass/Vol] 12.7 g/dL Low 13.0-16.5 [facility] Comment on above: Performed By: #### L 100.0100, L3200.1300, L501.9985, L500.4050, L501.9940 #### [facility] [address] [place], [address] IG% 0.200 Normal 0.0-0.9 [facility] Comment on above: Result Comment: IG% - Immature Granulocytes (promyelocytes, myelocytes and metamyelocytes) > 1% indicates that a LEFT SHIFT is Present. Performed By: #### L 100.0100, L3200.1300, L501.9985, L500.4050, L501.9940 #### [facility] [address] [place], [address] Lymphocytes/100 WBC (Bld) 29.6 % Normal 19-41 [facility] Comment on above: Performed By: #### L 100.0100, L3200.1300, L501.9985, L500.4050, L501.9940 #### [facility] [address] [place], [address] MCH (RBC) [Entitic mass] 32.1 pg High 27.0-32.0 [facility] Comment on above: Performed By: #### L 100.0100, L3200.1300, L501.9985, L500.4050, L501.9940 #### [facility] [address] [place], [address] MCHC (RBC) [Mass/Vol] 34.5 g/dL Normal 32-36 [facility] Comment on above: Performed By: #### L 100.0100, L3200.1300, L501.9985, L500.4050, L501.9940 #### [facility] [address] [place], [address] MCV (RBC) [Entitic vol] 92.9 fL Normal 80-94 [facility] Comment on above: Performed By: #### L 100.0100, L3200.1300, L501.9985, L500.4050, L501.9940 #### [facility] [address] [place], [address] Monocytes/100 WBC (Bld) 7.7 % Normal 0-10 [facility] Comment on above: Performed By: #### L 100.0100, L3200.1300, L501.9985, L500.4050, L501.9940 #### [facility] [address] [place], [address] Neutrophils/100 WBC (Bld) 58.5 % Normal 47-70 [facility] Comment on above: Performed By: #### L 100.0100, L3200.1300, L501.9985, L500.4050, L501.9940 #### [facility] [address] [place], [address] Nucleated RBC (Bld) [#/Vol] 0 10*3/uL Normal 0-5 [facility] Comment on above: Performed By: #### L 100.0100, L3200.1300, L501.9985, L500.4050, L501.9940 #### [facility] [address] [place], [address] Platelet mean volume (Bld) [Entitic vol] 9.8 fL Normal 6.2-12.0 [facility] Comment on above: Performed By: #### L 100.0100, L3200.1300, L501.9985, L500.4050, L501.9940 #### [facility] [address] [place], [address] Platelets (Bld) [#/Vol] 205 10*3/uL Normal 150-450 [facility] Comment on above: Performed By: #### L 100.0100, L3200.1300, L501.9985, L500.4050, L501.9940 #### [facility] [address] [place], [address] RBC (Bld) [#/Vol] 3.96 10*6/uL Low 4.6-6.2 [facility] Comment on above: Performed By: #### L 100.0100, L3200.1300, L501.9985, L500.4050, L501.9940 #### [facility] [address] [place], [address] RDW SD 43.3 fl Normal 35.1-43.9 [facility] Comment on above: Performed By: #### L 100.0100, L3200.1300, L501.9985, L500.4050, L501.9940 #### [facility] [address] [place], [address] WBC (Bld) [#/Vol] 4.6 10*3/uL Normal 4.4-11.0 [facility] Comment on above: Performed By: #### L 100.0100, L3200.1300, L501.9985, L500.4050, L501.9940 #### [facility] [address] [place], [address] Carbon dioxide, total [Moles /volume] in Central venous bloodOrdered By: Edward Edwards on 10-23-2024 CO2 [Moles/Vol] 21.2 mmol/L 21.0-32.0 [facility] Chloride assayOrdered By: Felicia Edwards on 10-23-2024 Chloride [Moles/Vol] 109 mmol/L High 98-108 [facility] Comprehensive Metabolic Prof ilon 10-23-2024 Albumin [Mass/Vol] 4.5 g/dL Normal 3.5-5.0 [facility] Comment on above: Order Comment: MAKENZIE REYES GETS RESULTS FOR IGG,CMP,CBCD, AND DR. EDWARDS GETS RESULTS FOR PSAD AND A1C Performed By: #### L 100.0100, L3200.1300, L501.9985, L500.4050, L501.9940 #### [facility] [address] [place], [address] Albumin/Globulin [Mass ratio] 1.7 {ratio} Normal 0.9-2.4 [facility] Comment on above: Order Comment: MAKENZIE REYES GETS RESULTS FOR IGG,CMP,CBCD, AND DR. EDWARDS GETS RESULTS FOR PSAD AND A1C Performed By: #### L 100.0100, L3200.1300, L501.9985, L500.4050, L501.9940 #### [facility] [address], [address] ALK PHOS 92 U/L Normal 40-129 [facility] Comment on above: Order Comment: MAKENZIE REYES GETS RESULTS FOR IGG,CMP,CBCD, AND DR. EDWARDS GETS RESULTS FOR PSAD AND A1C Performed By: #### L 100.0100, L3200.1300, L501.9985, L500.4050, L501.9940 #### [facility] [address] [place], [address] ALT [Catalytic activity/Vol] 39 U/L Normal <=46 [facility] Comment on above: Order Comment: MAKENZIE REYES GETS RESULTS FOR IGG,CMP,CBCD, AND DR. EDWARDS GETS RESULTS FOR PSAD AND A1C Performed By: #### L 100.0100, L3200.1300, L501.9985, L500.4050, L501.9940 #### [facility] [address], [address] AST [Catalytic activity/Vol] 29 U/L Normal <=37 [facility] Comment on above: Order Comment: MAKENZIE REYES GETS RESULTS FOR IGG,CMP,CBCD, AND DR. EDWARDS GETS RESULTS FOR PSAD AND A1C Performed By: #### L 100.0100, L3200.1300, L501.9985, L500.4050, L501.9940 #### [facility] [address] [place], [address] Bilirubin [Mass/Vol] 0.21 mg/dL Normal 0.00-1.30 [facility] Comment on above: Order Comment: MAKENZIE REYES GETS RESULTS FOR IGG,CMP,CBCD, AND DR. EDWARDS GETS RESULTS FOR PSAD AND A1C Performed By: #### L 100.0100, L3200.1300, L501.9985, L500.4050, L501.9940 #### [facility] [address] [place], [address] BUN/CRE 25.9 RATIO High 10-20 [facility] Comment on above: Order Comment: MAKENZIE REYES GETS RESULTS FOR IGG,CMP,CBCD, AND DR. EDWARDS GETS RESULTS FOR PSAD AND A1C Performed By: #### L 100.0100, L3200.1300, L501.9985, L500.4050, L501.9940 #### [facility] [address] [place], [address] Calcium [Mass/Vol] 9.4 mg/dL Normal 7.6-11.0 [facility] Comment on above: Order Comment: MAKENZIE REYES GETS RESULTS FOR IGG,CMP,CBCD, AND DR. EDWARDS GETS RESULTS FOR PSAD AND A1C Performed By: #### L 100.0100, L3200.1300, L501.9985, L500.4050, L501.9940 #### [facility] [address] [place], [address] Chloride [Moles/Vol] 109 mmol/L High 98-108 [facility] Comment on above: Order Comment: MAKENZIE REYES GETS RESULTS FOR IGG,CMP,CBCD, AND DR. EDWARDS GETS RESULTS FOR PSAD AND A1C Performed By: #### L 100.0100, L3200.1300, L501.9985, L500.4050, L501.9940 #### [facility] [address] [place], [address] CO2 [Moles/Vol] 21.2 mmol/L Normal 21.0-32.0 [facility] Comment on above: Order Comment: MAKENZIE REYES GETS RESULTS FOR IGG,CMP,CBCD, AND DR. EDWARDS GETS RESULTS FOR PSAD AND A1C Performed By: #### L 100.0100, L3200.1300, L501.9985, L500.4050, L501.9940 #### [facility] [address] [place], [address] Creatinine [Mass/Vol] 1.08 mg/dL Normal 0.70-1.20 [facility] Comment on above: Order Comment: MAKENZIE REYES GETS RESULTS FOR IGG,CMP,CBCD, AND DR. EDWARDS GETS RESULTS FOR PSAD AND A1C Performed By: #### L 100.0100, L3200.1300, L501.9985, L500.4050, L501.9940 #### [facility] [address] [place], [address] GAP 12 Normal 5-15 [facility] Comment on above: Order Comment: MAKENZIE REYES GETS RESULTS FOR IGG,CMP,CBCD, AND DR. EDWARDS GETS RESULTS FOR PSAD AND A1C Performed By: #### L 100.0100, L3200.1300, L501.9985, L500.4050, L501.9940 #### [facility] [address] [place], [address] GFR/1.73 sq M.predicted among non-blacks MDRD (S/P/Bld) [Vol rate/Area] 81 mL/min/{1.73_m2} Normal >60 [facility] Comment on above: Order Comment: MAKENZIE REYES GETS RESULTS FOR IGG,CMP,CBCD, AND DR. EDWARDS GETS RESULTS FOR PSAD AND A1C Result Comment: mL/m in/1.73m2 CKD-EPI Creatinine Equation (2020) Performed By: #### L 100.0100, L3200.1300, L501.9985, L500.4050, L501.9940 #### [facility] [address] [place], [address] Globulin (S) [Mass/Vol] 2.7 g/dL Normal 2.2-4.2 [facility] Comment on above: Order Comment: MAKENZIE REYES GETS RESULTS FOR IGG,CMP,CBCD, AND DR. EDWARDS GETS RESULTS FOR PSAD AND A1C Performed By: #### L 100.0100, L3200.1300, L501.9985, L500.4050, L501.9940 #### [facility] [address] [place], [address] Glucose [Mass/Vol] 96 mg/dL Normal 70-99 [facility] Comment on above: Order Comment: MAKENZIE REYES GETS RESULTS FOR IGG,CMP,CBCD, AND DR. EDWARDS GETS RESULTS FOR PSAD AND A1C Performed By: #### L 100.0100, L3200.1300, L501.9985, L500.4050, L501.9940 #### [facility] [address] [place], [address] Potassium [Moles/Vol] 4.4 mmol/L Normal 3.3-5.1 [facility] Comment on above: Order Comment: MAKENZIE REYES GETS RESULTS FOR IGG,CMP,CBCD, AND DR. EDWARDS GETS RESULTS FOR PSAD AND A1C Performed By: #### L 100.0100, L3200.1300, L501.9985, L500.4050, L501.9940 #### [facility] [address] [place], [address] Sodium [Moles/Vol] 142 mmol/L Normal 133-145 [facility] Comment on above: Order Comment: MAKENZIE REYES GETS RESULTS FOR IGG,CMP,CBCD, AND DR. EDWARDS GETS RESULTS FOR PSAD AND A1C Performed By: #### L 100.0100, L3200.1300, L501.9985, L500.4050, L501.9940 #### [facility] [address] [place], [address] T PROT 7.2 g/dL Normal 5.9-8.4 [facility] Comment on above: Order Comment: MAKENZIE REYES GETS RESULTS FOR IGG,CMP,CBCD, AND DR. EDWARDS GETS RESULTS FOR PSAD AND A1C Performed By: #### L 100.0100, L3200.1300, L501.9985, L500.4050, L501.9940 #### [facility] [address] [place], [address] Urea nitrogen [Mass/Vol] 28 mg/dL High 4-19 [facility] Comment on above: Order Comment: MAKENZIE REYES GETS RESULTS FOR IGG,CMP,CBCD, AND DR. EDWARDS GETS RESULTS FOR PSAD AND A1C Performed By: #### L 100.0100, L3200.1300, L501.9985, L500.4050, L501.9940 #### [facility] [address] [place], [place], [address] Eosinophil percentageOrdered By: Edward Edwards on 10-23-2024 Eosinophils/100 WBC (Bld) 2.9 % 0-5 [facility] Erythrocyte distribution wid th ratioOrdered By: Edward Edwards on 10-23-2024 Erythrocyte distribution width (RBC) [Ratio] 12.6 % 11.6-14.6 [facility] Erythrocyte distribution wid th standard deviationOrdered By: Edward Desmond on 10-23-2024 Erythrocyte distribution width (RBC) [Ratio] 43.3 fl 35.1-43.9 [facility] Glomerular filtration rate ( GFR) estimation/1.73 sq m using serum, plasma, or whole bOrdered By: Edward Edwards on 10-23-2024 GFR/1.73 sq M.predicted among non-blacks MDRD (S/P/Bld) [Vol rate/Area] 81 mL/min/{1.73_m2} >60 [facility] Comment on above: mL/min/1.73m2 CKD-EP I Creatinine Equation (2020) Hematocrit Auto (Bld) [Volum e fraction]Ordered By: Edward Edwards on 10-23-2024 Hematocrit (Bld) [Volume fraction] 36.8 % Low 40-54 [facility] Hemoglobin A1con 10-23-2024 HbA1c (Bld) [Mass fraction] 6.1 % High <=5.6 [facility] Comment on above: Result Comment: Norm al < 5.7 % Prediabetic 5.7 - 6.4 % Diabetic >or= 6.5 % Please note range changes. Performed By: #### L 100.0100, L3200.1300, L501.9985, L500.4050, L501.9940 #### [facility] [address] [place], [address] Hemoglobin A1c percentageOrd ered By: Edward Edwards on 10-23-2024 HbA1c (Bld) [Mass fraction] 6.1 % High <5.7 [facility] Comment on above: Normal < 5.7 % Predi abetic 5.7 - 6.4 % Diabetic >or= 6.5 % Please note range changes. Hemoglobin measurementOrdere d By: Edward Edwards on 10-23-2024 Hemoglobin (Bld) [Mass/Vol] 12.7 g/dL Low 13.0-16.5 [facility] Immature granulocytes/100 WB C Auto (Bld)Ordered By: Edward Edwards on 10-23-2024 Immature granulocytes/100 WBC (Bld) 0.200 % 0.0-0.9 [facility] Comment on above: IG% - Immature Granu locytes (promyelocytes, myelocytes and metamyelocytes) > 1% indicates that a LEFT SHIFT is Present. Laboratory - Chemistry and C hemistry - challengeOrdered By: Edward Edwards on 10-23-2024 AST [Catalytic activity/Vol] 29 U/L <38 [facility] MCV (mean corpuscular volume ) determinationOrdered By: Edward Edwards on 10-23-2024 MCV (RBC) [Entitic vol] 92.9 fL 80-94 [facility] Mean corpuscular hemoglobin (MCH) determinationOrdered By: Edward Edwards 10-23-2024 MCH (RBC) [Entitic mass] 32.1 pg High 27.0-32.0 [facility] Mean corpuscular hemoglobin concentration (MCHC) determinationOrdered By: Edward Edwards on 10-23-2024 MCHC (RBC) [Mass/Vol] 34.5 g/dL 32-36 [facility] Mean platelet volume determi nationOrdered By: Edward Edwards on 10-23-2024 Platelet mean volume (Bld) [Entitic vol] 9.8 fL 6.2-12.0 [facility] Monocyte percentageOrdered B y: Edwadr Edwards on 10-23-2024 Monocytes/100 WBC (Bld) 7.7 % 0-10 [facility] Neutrophil percentageOrdered By: Edward Edwards on 10-23-2024 Neutrophils/100 WBC (Bld) 58.5 % 47-70 [facility] Nucleated red blood cell per centageOrdered By: Edward Edwards on 10-23-2024 Nucleated RBC/100 WBC (Bld) [Ratio] 0 % 0-5 [facility] PSA,Total- [employer] 10-09 PSA, DIAGNOSTIC 2.37 ng/mL Normal 0.00-4.00 [facility] Comment on above: Order Comment: MAKENZIE REYES GETS RESULTS FOR IGG,CMP,CBCD, AND DR. EDWARDS GETS RESULTS FOR PSAD AND A1C Result Comment: This test was performed using the [employer] tPSA method. Measured values of a patient??sample can vary depending on the testing procedure used. PSA values determined on patient samples by different testing procedures cannot be used interchangeably. If there is a change in PSA assays while monitoring therapy, sequential testing should be performed to confirm baseline values. Performed By: #### L 100.0100, L3200.1300, L501.9985, L500.4050, L501.9940 #### [facility] [address] [place], [address] Platelet countOrdered By: Felicia Edwards on 10-23-2024 Platelets (Bld) [#/Vol] 205 10*3/uL 150-450 [facility] Potassium measurement (mass/ volume)Ordered By: Edward Edwards on 10-23-2024 Potassium (Unsp spec) [Mass/Vol] 4.4 mmol/L 3.3-5.1 [facility] RBC Auto (Bld) [#/Vol]Ordere d By: Edward Edwards on 10-23-2024 RBC (Bld) [#/Vol] 3.96 10*6/uL Low 4.6-6.2 [facility] Serum creatinine measurement (mass/volume)Ordered By: Edward Edwards on 10-23-2024 Creatinine [Mass/Vol] 1.08 mg/dL 0.70-1.20 [facility] Serum globulin measurementOr dered By: Edward Edwards on 10-23-2024 Globulin (S) [Mass/Vol] 2.7 g/dL 2.2-4.2 [facility] Serum glucose measurement (m ass/volume)Ordered By: Edward Edwards on 10-23-2024 Glucose [Mass/Vol] 96 mg/dL 70-99 [facility] Serum or plasma IgG measurem ent (mass/volume)Ordered By: Edward Edwards on 10-23-2024 IgG [Mass/Vol] 1024 mg/dL 603-1613 [facility] Comment on above: Performed at: [address] [id number] Director: Matias Adam PhD, Phone: [phone] Serum or plasma alanine liu otransferase (ALT) measurementOrdered By: Edward Edwards on 10-23-2024 ALT [Catalytic activity/Vol] 39 U/L <47 [facility] Serum or plasma albumin anthony urement (mass/volume)Ordered By: Edward Edwards on 10-23-2024 Albumin [Mass/Vol] 4.5 g/dL 3.5-5.0 [facility] Serum or plasma albumin/glob ulin mass ratioOrdered By: Edward Edwards on 10-23-2024 Albumin/Globulin [Mass ratio] 1.7 {ratio} 0.9-2.4 [facility] Serum or plasma alkaline sunny sphatase measurementOrdered By: Edward Edwards on 10-23-2024 ALP [Catalytic activity/Vol] 92 U/L 40-129 [facility] Serum or plasma calcium anthony urement (mass/volume)Ordered By: Edward Edwards on 10-23-2024 Calcium [Mass/Vol] 9.4 mg/dL 7.6-11.0 [facility] Serum or plasma urea nitroge n measurement (mass/volume)Ordered By: Edward Edwards on 10-23-2024 Urea nitrogen [Mass/Vol] 28 mg/dL High 4-19 [facility] Sodium levelOrdered By: Nohemi Edwards on 10-23-2024 Sodium [Moles/Vol] 142 mmol/L 133-145 [facility] Total proteinOrdered By: Malathi Edwards on 10-23-2024 Protein [Mass/Vol] 7.2 g/dL 5.9-8.4 [facility] White blood cell (WBC) count Ordered By: Edward Edwards on 10-23-2024 WBC (Bld) [#/Vol] 4.6 10*3/uL 4.4-11.0 [facility] Colonoscopy Reporton 025 Colonoscopy Report [facility] Medical Records Department [address] [place] [address] Colonoscopy Report MR#: [id number] Acct: [id number] Name: SALVADOR YORK Jr. Rep #: [id number] : 1970 54 From: Faraz Hernandez MD PCP: Dr. Edward Edwards MD Status:REG [facility] Patient Name: Salvador York Procedure Date: 10/05/2024 [...] screening purposes. Procedure Code(s): --- Professional --- 76441, Colonoscopy, flexible; diagnostic, including collection of specimen(s) by brushing or washing, when performed (separate procedure) Diagnosis Code(s): --- Professional --- Z12.11, Encounter for screening for malignant neoplasm of colon CPT copyright 2021 [employer]. All rights reserved. The codes documented in this report are preliminary and upon research and evaluation manager review may be revised to meet current compliance requirements. Faraz Hernandez MD 10/05/2024 9:58:08 AM This report has been signed electronically. Number of Addenda: 0 Note Initiated On: 10/05/2024 9:31 AM 10/05/2458 Date Faraz Hernandez MD Cosigner Signature: Date (if indicated) CC: Dr. Faraz Hernandez MD; Dr. Edward Edwards MD; Dr. Theo Falk MD Date Dictated: 10/05/24930 Date Transcribed: Instructional Technologist: AC Signed Normal [facility] MR/POSTOP.Marly 10-05-2024 MR/POSTOP.[facility] Medical Records Department [address] [place] [address] Anesthesia Postop Eval I 10/05/24958 MR#: [id number] Acct: [id number] Name: SALVADOR YORK JrPrateek Rep #: [id number] : 1970 54 From: Elsie Lo GRAPHICS EDITOR PCP: Dr. Edward Edwarsd MD Status:REG [facility] Y Race: C Location: [place] [address] Anesthesia: Postop Eval I Current Vital Signs Temperature: 97.1 F Pulse Rate: 49 Blood Pressure: 85/44 Respiratory Rate: 18 Pulse Ox: 96 Assessment Airway patent: Yes Spontaneous unlabored respirations: Yes nausea: No Vomiting: No Anesthesia Complication: No Fluid Hydration Crystalloid volume administer (ml): 500 Total IV fluid infused: 500 Progress Note Anesthesia document: Postop Eval 1 completed: Yes 10/05/24958 Date Elsie Lo GRAPHICS EDITOR Cosigner Signature: Date CC: Signed Normal [facility] MR/[id number] 10-05-2024 [facility] Medical Records Department [address] [place] [address] Anesthesia Postop Eval II 10/05/24 1027 MR#: [id number] Acct: [id number] Name: SALVADOR YORK JrPrateek Rep #: [id number] : 1970 54 From: Elsie Lo GRAPHICS EDITOR PCP: Dr. Edward Edwards MD Status:REG [facility] Y Race: C Location: [place] [address] Anesthesia Postop Eval I Sum Postop Eval Completion status Anesthesia document: Postop Eval 1 completed: Yes Anesthesia Postop Eval I Summary Anesthesia Postop Eval I Summary: Anesthesia Postop Eval I: Assessment Summary Airway patent Yes 10/05/24 09:59 GRAPHICS EDITOR.CSIR Spontaneous unlabored Yes 10/05/24 09:59 GRAPHICS EDITOR.CSIR respirations Mental status nausea No 10/05/24 09:59 GRAPHICS EDITOR.CSIR Vomiting No 10/05/24 09:59 GRAPHICS EDITOR.CSIR Anesthesia Postop Eval I: Fluid Summary Crystalloid volume administer 500 10/05/24 09:59 GRAPHICS EDITOR.CSIR (ml) Colloids volume administered ( ml) Blood Product volume administered (ml) Total IV fluid infused 500 10/05/24 09:59 GRAPHICS EDITOR.CSIR Anesthesia Postop Eval I: Summary Notes Anesthesia Complication No 10/05/24 09:59 GRAPHICS EDITOR.CSIR Anesthesia Complication Comment: Post-operative progress note Anesthesia: Postop Eval II Evaluation Mental status: Awake Pain Level: 0 nausea: No Vomiting: No 10/05/24 1028 Date Elsie britni GRAPHICS EDITOR Cosigner Signature: Date CC: Signed Normal [facility] Immunoglobulin Obi 5 IMMUNOGLOB G QN 1179 mg/dL Normal 603-1613 [facility] Comment on above: Result Comment: Perf ormed at: [facility] [address] [id number] Filament Tester: Matias Adam PhD, Phone: [phone] Performed By: #### L 100.0100, L3200.1300, L500.4056 ####[facility] [address] [place], [place], [id number] CBC W/Diff, Automatedon 05-12 Absolute Lymph 1.40 X10 3/uL Normal 0.83-4.51 [facility] Comment on above: Performed By: #### L 100.0100, L3200.1300, L500.4050 #### [facility] [address] [place], [place], [id number] Absolute Neut 1.7 X10 3/uL Low 2.0-7.7 [facility] Comment on above: Performed By: #### L 100.0100, L3200.1300, L500.4050 #### [facility] [address] [place], [address] Basophils/100 WBC (Bld) 1.6 % High 0-1 [facility] Comment on above: Performed By: #### L 100.0100, L3200.1300, L500.4050 #### [facility] [address] [place], [address] Eosinophils/100 WBC (Bld) 5.3 % High 0-5 [facility] Comment on above: Performed By: #### L 100.0100, L3200.1300, L500.4050 #### [facility] [address] [place], [address] Erythrocyte distribution width (RBC) [Ratio] 12.2 % Normal 11.6-14.6 [facility] Comment on above: Performed By: #### L 100.0100, L3200.1300, L500.4050 #### [facility] [address] [place], [address] Hematocrit (Bld) [Volume fraction] 39.0 % Low 40-54 [facility] Comment on above: Performed By: #### L 100.0100, L3200.1300, L500.4050 #### [facility] [address] [place], [address] Hemoglobin (Bld) [Mass/Vol] 13.7 g/dL Normal 13.0-16.5 [facility] Comment on above: Performed By: #### L 100.0100, L3200.1300, L500.4050 #### [facility] [address] [place], [address] IG% 0.500 Normal 0.0-0.9 [facility] Comment on above: Result Comment: IG% - Immature Granulocytes (promyelocytes, myelocytes and metamyelocytes) > 1% indicates that a LEFT SHIFT is Present. Performed By: #### L 100.0100, L3200.1300, L500.4050 #### [facility] [address] [place], [address] Lymphocytes/100 WBC (Bld) 37.3 % Normal 19-41 [facility] Comment on above: Performed By: #### L 100.0100, L3200.1300, L500.4050 #### [facility] [address] [place], [address] MCH (RBC) [Entitic mass] 32.0 pg Normal 27.0-32.0 [facility] Comment on above: Performed By: #### L 100.0100, L3200.1300, L500.4050 #### [facility] [address] [place], [address] MCHC (RBC) [Mass/Vol] 35.1 g/dL Normal 32-36 [facility] Comment on above: Performed By: #### L 100.0100, L3200.1300, L500.4050 #### [facility] [address] [place], [address] MCV (RBC) [Entitic vol] 91.1 fL Normal 80-94 [facility] Comment on above: Performed By: #### L 100.0100, L3200.1300, L500.4050 #### [facility] [address] [place], [address] Monocytes/100 WBC (Bld) 10.1 % High 0-10 [facility] Comment on above: Performed By: #### L 100.0100, L3200.1300, L500.4050 #### [facility] [address] [place], [address] Neutrophils/100 WBC (Bld) 45.2 % Low 47-70 [facility] Comment on above: Performed By: #### L 100.0100, L3200.1300, L500.4050 #### [facility] [address] [place], [address] Nucleated RBC (Bld) [#/Vol] 0 10*3/uL Normal 0-5 [facility] Comment on above: Performed By: #### L 100.0100, L3200.1300, L500.4050 #### [facility] [address] [place], [address] Platelet mean volume (Bld) [Entitic vol] 9.6 fL Normal 6.2-12.0 [facility] Comment on above: Performed By: #### L 100.0100, L3200.1300, L500.4050 #### [facility] [address] [place], [address] Platelets (Bld) [#/Vol] 203 10*3/uL Normal 150-450 [facility] Comment on above: Performed By: #### L 100.0100, L3200.1300, L500.4050 #### [facility] [address] [place], [address] RBC (Bld) [#/Vol] 4.28 10*6/uL Low 4.6-6.2 [facility] Comment on above: Performed By: #### L 100.0100, L3200.1300, L500.4050 #### [facility] [address] [place], [address] RDW SD 41.0 fl Normal 35.1-43.9 [facility] Comment on above: Performed By: #### L 100.0100, L3200.1300, L500.4050 #### [facility] [address] [place], [address] WBC (Bld) [#/Vol] 3.8 10*3/uL Low 4.4-11.0 [facility] Comment on above: Performed By: #### L 100.0100, L3200.1300, L500.4050 #### [facility] [address] [place], [address] Comprehensive Metabolic Prof ilon 05-22-2024 Albumin [Mass/Vol] 3.8 g/dL Normal 3.2-5.0 [facility] Comment on above: Performed By: #### L 100.0100, L3200.1300, L500.4050 #### [facility] [address] [place], [address] Albumin/Globulin [Mass ratio] 1.0 {ratio} Normal 0.9-2.4 [facility] Comment on above: Performed By: #### L 100.0100, L3200.1300, L500.4050 #### [facility] [address] [place], [address] ALK P 76 U/L Normal 45-117 [facility] Comment on above: Performed By: #### L 100.0100, L3200.1300, L500.4050 #### [facility] [address] [place], [address] ALT [Catalytic activity/Vol] 44 U/L Normal 16-61 [facility] Comment on above: Performed By: #### L 100.0100, L3200.1300, L500.4050 #### [facility] [address] [place], [address] AST [Catalytic activity/Vol] 24 U/L Normal 15-37 [facility] Comment on above: Performed By: #### L 100.0100, L3200.1300, L500.4050 #### [facility] [address] [place], [address] Bilirubin [Mass/Vol] 0.30 mg/dL Normal 0.20-1.00 [facility] Comment on above: Result Comment: For patients on eltrombopag therapy, use of Dimension [place] TBIL is not recommended. Performed By: #### L 100.0100, L3200.1300, L500.4050 #### [facility] [address] [place], [address] BUN/CRE 23.7 RATIO High 10-20 [facility] Comment on above: Performed By: #### L 100.0100, L3200.1300, L500.4050 #### [facility] [address] [place], [address] CA,Total 9.8 mg/dL Normal 8.5-10.1 [facility] Comment on above: Performed By: #### L 100.0100, L3200.1300, L500.4050 #### [facility] [address] [place], [address] Chloride [Moles/Vol] 110 mmol/L High 98-107 [facility] Comment on above: Performed By: #### L 100.0100, L3200.1300, L500.4050 #### [facility] [address] [place], [address] CO2 [Moles/Vol] 23.0 mmol/L Normal 21.0-32.0 [facility] Comment on above: Performed By: #### L 100.0100, L3200.1300, L500.4050 #### [facility] [address] [place], [address] Creatinine [Mass/Vol] 1.14 mg/dL Normal 0.70-1.30 [facility] Comment on above: Result Comment: The validity of the calculated GFR GFRAA in patients over 70 years has not been determined. Clinical correlation is essential. Performed By: #### L 100.0100, L3200.1300, L500.4050 #### [facility] [address] [place], [address] EST GFR - AA 85 mL/min Normal >60 [facility] Comment on above: Result Comment: Afri can [employer] GFR Calc Performed By: #### L 100.0100, L3200.1300, L500.4050 #### [facility] [address] [place], [address] GAP 7 Normal 5-15 [facility] Comment on above: Performed By: #### L 100.0100, L3200.1300, L500.4050 #### [facility] [address] [place], [address] GFR/1.73 sq M.predicted among non-blacks MDRD (S/P/Bld) [Vol rate/Area] 71 mL/min/{1.73_m2} Normal >60 [facility] Comment on above: Result Comment: Non- GFR Calc Performed By: #### L 100.0100, L3200.1300, L500.4050 #### [facility] [address] [place], [address] Globulin (S) [Mass/Vol] 3.7 g/dL Normal 2.2-4.2 [facility] Comment on above: Performed By: #### L 100.0100, L3200.1300, L500.4050 #### [facility] [address] [place], [address] Glucose [Mass/Vol] 114 mg/dL High 74-106 [facility] Comment on above: Result Comment: Fast ing Glucose result from 100 to 125 mg/dL suggests IMPAIRED HOMEOSTASIS per A.D.A. criteria. Performed By: #### L 100.0100, L3200.1300, L500.4050 #### [facility] [address] [place], [address] Potassium [Moles/Vol] 4.5 mmol/L Normal 3.5-5.1 [facility] Comment on above: Performed By: #### L 100.0100, L3200.1300, L500.4050 #### [facility] [address] [place], [address] Sodium [Moles/Vol] 140 mmol/L Normal 136-145 [facility] Comment on above: Performed By: #### L 100.0100, L3200.1300, L500.4050 #### [facility] [address] [place], [address] T PROT 7.5 g/dL Normal 6.4-8.2 [facility] Comment on above: Performed By: #### L 100.0100, L3200.1300, L500.4050 #### [facility] [address] [place], [address] Urea nitrogen [Mass/Vol] 27 mg/dL High 7-18 [facility] Comment on above: Performed By: #### L 100.0100, L3200.1300, L500.4050 #### [facility] [address] [place], [address] Absolute lymphocyte countOrd ered By: Edward Edwards on 08-03-2023 Lymphocytes Auto (Unsp spec) [#/Vol] 1.54 10*3/uL 0.83-4.51 [facility] Automated lymphocyte count a s percentage of total leukocytesOrdered By: Edward Edwards on 08-03-2023 Lymphocytes/100 WBC Auto (Unsp spec) 18.9 % 19-41 [facility] Basophil percentageOrdered B y: Edward Edwards on 08-03-2023 Basophils/100 WBC (Bld) 0.5 % 0-1 [facility] Bilirubin [Mass/Vol] 0.20 mg/dL 0.20-1.00 [facility] Comment on above: For patients on eltr ombopag therapy, use of Dimension [place] TBIL is not recommended. Chloride [Moles/Vol] 108 mmol/L 98-107 [facility] Cholesterol [Mass/Vol] 227 mg/dL <200 [facility] Comment on above: <200 mg/dL Desirable 200-240 mg/dL Borderline >240 mg/dL High Risk Eosinophils/100 WBC (Bld) 0.9 % 0-5 [facility] Glucose [Mass/Vol] 149 mg/dL 74-106 [facility] Comment on above: Fasting Glucose resu lt greater than or equal to 126 mg/dL suggests DIABETES MELLITUS per A.D.A. criteria. Hemoglobin (Bld) [Mass/Vol] 13.1 g/dL 13.0-16.5 [facility] Monocytes/100 WBC (Bld) 6.8 % 0-10 [facility] Neutrophils (Bld) [#/Vol] 5.9 10*3/uL 2.0-7.7 [facility] Neutrophils/100 WBC (Bld) 72.3 % 47-70 [facility] Potassium [Moles/Vol] 4.0 mmol/L 3.5-5.1 [facility] Protein [Mass/Vol] 7.3 g/dL 6.4-8.2 [facility] Sodium [Moles/Vol] 141 mmol/L 136-145 [facility] Triglyceride [Mass/Vol] 189 mg/dL <199 [facility] Comment on above: The drugs N-Acetylcy steine and Metamizole may falsely depress this assay.Serum Triglycerides Reference Interval Normal <150 mg/dL Borderline high 150 - 199 mg/dL High 200 - 499 mg/dL Very High > or = 500 mg/dL WBC (Bld) [#/Vol] 8.1 10*3/uL 4.4-11.0 [facility] Determination of erythrocyte mean corpuscular volume (MCV)Ordered By: Edward Edwards on 08-03-2023 MCV (RBC) [Entitic vol] 95.3 fL 80-94 [facility] Erythrocyte distribution wid th ratioOrdered By: Edward Desmond on 08-03-2023 Erythrocyte distribution width (RBC) [Ratio] 12.6 % 11.6-14.6 [facility] Erythrocyte distribution wid th standard deviationOrdered By: Edward Edwards on 08-03-2023 Erythrocyte distribution width (RBC) [Entitic vol] 44.0 fL 35.1-43.9 [facility] Hematocrit Auto (Bld) [Volum e fraction]Ordered By: Edward Edwards on 08-03-2023 Hematocrit (Bld) [Volume fraction] 38.7 % 40-54 [facility] Immature granulocytes/100 WB C Auto (Bld)Ordered By: Edward Edwards on 08-03-2023 Immature granulocytes/100 WBC (Bld) 0.600 % 0.0-0.9 [facility] Comment on above: IG% - Immature Granu locytes (promyelocytes, myelocytes and metamyelocytes) > 1% indicates that a LEFT SHIFT is Present. Laboratory - Chemistry and C hemistry - challengeOrdered By: Edward Edwards on 08-03-2023 Albumin/Globulin [Mass ratio] 1.1 {ratio} 0.9-2.4 [facility] ALP [Catalytic activity/Vol] 93 U/L 45-117 [facility] ALT [Catalytic activity/Vol] 87 U/L 16-61 [facility] Cholesterol in HDL [Mass/Vol] 55 mg/dL >40 [facility] Comment on above: The drugs N-Acetylcy steine and Metamizole may falsely depress this assay. Reference Range HDL <40 mg/dL Low HDL Cholesterol HDL >or= 60 mg/dL High HDL Cholesterol Cholesterol in LDL [Mass/Vol] 134 mg/dL 0-130 [facility] CO2 [Moles/Vol] 27.0 mmol/L 21.0-32.0 [facility] Globulin (S) [Mass/Vol] 3.5 g/dL 2.2-4.2 [facility] Urea nitrogen/Creatinine [Mass ratio] 24.0 mg/mg 10-20 [facility] Laboratory - Hematology and Cell countsOrdered By: Edward Edwards on 08-03-2023 MCH (RBC) [Entitic mass] 32.3 pg 27.0-32.0 [facility] MCHC (RBC) [Mass/Vol] 33.9 g/dL 32-36 [facility] Nucleated RBC/100 WBC (Bld) [Ratio] 0 % 0-5 [facility] Platelet mean volume (Bld) [Entitic vol] 9.9 fL 6.2-12.0 [facility] Platelets (Bld) [#/Vol] 203 10*3/uL 150-450 [facility] No Panel InformationOrdered By: Edward Edwards on 08-03-2023 Estimated GFR (MDRD) Amer 80 mL/min >60 [facility] Comment on above: GFR Calc Estimated GFR (MDRD) Non-Af Amer 66 mL/min >60 [facility] Comment on above: Non- GFR Calc Prostate Specific Antigen Screen 2.21 ng/mL 0.00-4.00 [facility] Comment on above: This test was perfor med using the TPSA assay method for the[employer] chemistry system. Values obtained with differentassay methods cannot be used interchangably.When changing PSA assays in the course of monitoring apatient, additional sequential testing should be carriedout to confirm baseline values. VLDL Cholesterol 38 mg/dL 5-40 [facility] RBC Auto (Bld) [#/Vol]Ordere d By: Edward Edwards on 08-03-2023 RBC (Bld) [#/Vol] 4.06 10*6/uL 4.6-6.2 [facility] Serum or plasma calcium anthony urement (mass/volume)Ordered By: Edward Edwards on 08-03-2023 Calcium [Mass/Vol] 8.8 mg/dL 8.5-10.1 [facility] Serum or plasma creatinine m easurement (mass/volume)Ordered By: Edward Edwards on 08-03-2023 Creatinine [Mass/Vol] 1.21 mg/dL 0.70-1.30 [facility] Comment on above: The validity of the calculated GFR & GFRAA in patients over 70 years has not been determined. Clinical correlation is essential. Serum or plasma urea nitroge n measurement (mass/volume)Ordered By: Edward Edwards on 08-03-2023 Urea nitrogen [Mass/Vol] 29 mg/dL 7-18 [facility] Thin prep Papanicolaou smear with manual screeningOrdered By: Edward Edwards on 08-03-2023 Thin prep Papanicolaou smear with manual screening 3.8 g/dL 3.2-5.0 [facility] Thin prep Papanicolaou smear with manual screening 42 U/L 15-37 [facility] Thin prep Papanicolaou smear with manual screening 6 5-15 [facility] Vital Signs Date Time Vital Sign Value Performing Clinician Faci lity 10-05-2024 10:19-0400 Body temperature 98.1 [degF] Edward Edwards MD Work Phone: [facility] 10-05-2024 10:19-0400 Diastolic blood pressure 83 mm[Hg] Edward Edwards MD Work Phone: [facility] 10-05-2024 10:19-0400 Heart rate 48 /min Edward Edwards MD Work Phone: [facility] 10-05-2024 10:19-0400 Respiratory rate 16 /min Edward Edwards MD Work Phone: [facility] 10-05-2024 10:19-0400 SaO2% (BldA) [Mass fraction] 99 % Edward Edwards MD Work Phone: [facility] 10-05-2024 10:19-0400 Systolic blood pressure 129 mm[Hg] Edward Edwards MD Work Phone: [facility] 10-05-2024 08:30-0400 Body height 177.8 cm Edward Edwards MD Work Phone: [facility] 10-05-2024 08:30-0400 Body mass index (BMI) [Ratio] 30 kg/m2 Edward Edwards MD Work Phone: [facility] 10-05-2024 08:30-0400 Body weight 95 kg Edward Edwards MD Work Phone: [facility] Encounters Encounter Date Encounter Type Care Provider Facility Start: 10-23-2024 End: 10-23-2024 ambulatory Edward Edwards MD Work Phone: [facility] Start: 10-23-2024 End: 10-23-[address] Edward Edwards MD [facility] Work Phone: Start: 10-23-2024 End: 10-23-2024 ambulatory STEPHANIE REYES Facility:[facility] Start: 10-05-2024 ambulatory Faraz Campbell lity:[facility] Start: 10-05-2024 Non-patient / Non-visit Dr. Sylvie Hernandez MD -[facility] Start: 10-05-2024 End: 10-05-2024 Admission to same day surgery center Dr. Faraz Hernandez MD -Endoscopy Work Phone: Start: 10-05-2024 End: 10-05-2024 ambulatory Edward Edwards MD Work Phone: -Endoscopy Start: 05-22-2024 End: 05-22-2024 ambulatory [facility] Facility:[facility] Start: 08-03-2023 End: 08-03-2023 ambulatory [facility] Work Phone: Start: 08-03-2023 End: 08-03-2023 Patient encounter procedure [facility] Work Phone: Procedures Date Procedure Procedure Detail Performing Clinician Start: 10-23-2024 Assay of prostate sp ecific antigen total Edward Edwards MD Work Phone: Comment on above: This test was perfor med using the [employer] tPSA method. Measured values of a patient sample can vary depending on the testing procedure used. PSA values determined on patient samples by different testing procedures cannot be used interchangeably. If there is a change in PSA assays while monitoring therapy, sequential testing should be performed to confirm baseline values. Start: 10-05-2024 Colonoscopy Edward cai MD Work Phone: Plan of Treatment Date Care Activity Detail Author Start: 10-05-2024 Colonoscopy flx dx w/collj spec when pfrmd DIAGNOSTIC COLONOSCOPY [facility] Start: 10-05-2024 Patient discharge [facility] Payers Date Payer Category Payer Self-pay [id number] 2024 Unknown [id number] Unknown [id number] [id number] [id number] Unknown [id number] [id number] Unknown [id number] [id number] [id number] Unknown [id number] [id number] Social History Date Type Detail Facility Start: 07-06-2015 Tobacco smoking stat [facility] Unknown if ever smoked [facility] Start: 1970 Sex Assigned At Male [facility] Start: 10-05-2024 [facility] Start: 10-05-2024 Tobacco Use Tobacco Use [facility] Goals Date Patient Goal Desired Activity /State Mental Status Date Assessment Result Facility 10-05-2024 Cognitive function Voice/Name;Touch/Shaki ng [facility] Work Phone: Clinical Notes 10-05-2024 Note Date & Type Note Facility 10-05-2024 Consult note [facility] 10-05-2024 Consult note [facility] 10-05-2024 Evaluation note Diagnosis Onset Date Resolution Screen for colon cancer acute October 05, 2024 8:04am [facility] Work Phone: 1(931) 919-574606-27-2025 Procedure note [facility] Medical Records Department [address] [place] [address] Colonoscopy Report MR#: [id number] Acct: [id number] Name: SALVADOR YORK . Rep #:[id number] : 1970 54 From: Faraz richards MD PCP: Dr. Edward Edwards MD Status:REG SD C Patient Name: Salvador [...] screening purposes. Procedure Code(s): --- Professional --- 26286, Colonoscopy, flexible; diagnostic, including collection of specimen(s) by brushing or washing, when performed (separate procedure) Diagnosis Code(s): --- Professional --- Z12.11, Encounter for screening for malignant neoplasm of colon CPT copyright 2021 [employer]. All rights reserved. The codes documented in this report are preliminary and upon research and evaluation manager review may be revised to meet current compliance requirements. Faraz Hernandez MD 10/05/2024 9:58:08 AM This report has been signed electronically. Number of Addenda: 0 Note Initiated On: 10/05/2024 9:31 AM 10/05/24 0958 Date _ Faraz Hernandez MD Cosigner Signature: Date (if indicated) CC: Dr. Faraz Hernandez MD; Dr. Edward Edwards MD; Dr. Theo Falk MD ~ Date Dictated: 10/05/24930 Date Transcribed: Instructional Technologist: AC Signed [facility]06-27-2025 Procedure note [facility] Medical Records Department [address] [place] [address] Operative Report - CC Letter MR#: [id number] Acct: [id number] Name: SALVADOR YORK Jr. Rep #:[id number] : 1970 54 From: Faraz richards MD PCP: Dr. Edward Edwards MD Status:REG SD C 10/05/2024 Theo Falk [address] [facility] [address] [place] [address] Re : Colonoscopy procedure for Salvador York Dear Dr. Falk This procedure was performed on Saturday, October 05, 2024. My impressions and recommendations [...] CC: Dr. Faraz Hernandez MD; Dr. Edward Edwards MD; Dr. Theo Falk MD ~ Date Dictated: 10/05/24930 Date Transcribed: Instructional Technologist: MARISA Signed [facility]06-27-2025 History and physical note [facility] Medical Records Department [address] [place] [address] History & Physical Exam 10/05/24926 MR#: [id number] Acct: [id number] Name: SALVADOR YORK Jr. Rep #:[id number] : 1970 54 From: Faraz richards MD PCP: Dr. Edward Edwards MD Status:REG SD C Location: [place] [address] HPI - General HPI Narrative SALVADOR YORK, is a 54 M who presents for screening colonoscopy. Patient has never had a colonoscopy in the past. He denies any abdominal pain or blood in stool. No family history of colon cancer. [facility] Medical History Wears glasses Wears contact lenses [...] 08:28) Discharge Is Pt Admitted From a Shelter, or a Prison: No After D/C, Where Do you Plan [...] proceed with procedure. Faraz Hernandez MD Pager: [facility] [address] [facility] [address] [place], [address] [place] [address] Office: Surgery Risks - Colonoscopy Risks Include but are not Limited To: Risks include but are not limited to: Bleeding, perforation requiring further surgery, inability to complete colonoscopy requiring barium enema. 10/05/24927 Cosigner Signature (if applicable): CC: Dr. Faraz Hernandez MD; Dr. Edward Edwards MD~ Signed [facility]06-27-2025 [facility] Medical Records Department [address] [place] [address] History Physical Exam 10/05/24926 MR#: [id number] Acct: [id number] Name: SALVADOR YORK Jr. Rep #: [id number] : 1970 54 From: Faraz Hernandez MD PCP: Dr. Edward Edwards MD Status:[facility] Location: [place] [address] HPI - General HPI Narrative SALVADOR YORK, is a 54 M who presents for screening colonoscopy. Patient has never had a colonoscopy in the past. He denies any abdominal pain or blood in stool. No family history of colon cancer. [facility] Medical History Wears glasses Wears contact lenses Alcohol use History of steroid therapy Arthritis Multiple sclerosis Patient uses snuff Hypertension Home Medications ???Medication ???Instructions ???Recorded ???Last Taken ???Type cholecalciferol (vitamin D3) 1,250 1,250 mcg PO QWEEK 10/03/24 Unkn own History mcg (50,000 unit) capsule diphenhydramine HCl 25 mg capsule 25 mg PO Q8H PRN itching 10/03/24 Unknown History (Benadryl) olmesartan 20 mg tablet 20 mg PO DAILY 10/03/24 10/05/24 0 7:15 History prednisone 5 mg tablets in a dose See Rx Instructions PO .COMPLEX 0 10/03/24 Unknown History pack Allergy/AdvReac Type Severity [...] 08:28) Discharge Is Pt Admitted From a Shelter, or a Prison: No After D/C, Where Do you Plan [...] and non-distended Extremity normal to inspection Assessment Plan Assessment/Plan (1) Screen for colon cancer: PLAN: I explained endoscopy in detail to the patient. I explained the risks including but not limited to stroke or heart attack with anesthesia, perforation of the GI tract, bleeding, infection. I explained that any of these could necessitate further emergency surgery. The patient understands and all questions were answered sufficiently. The patient wishes to proceed with procedure. Faraz Hernandez MD Pager: [facility] [address] [facility], [address] [place] [address] Office: Surgery Risks - Colonoscopy Risks Include but are not Limited To: Risks include but are not limited to: Bleeding, perforation requiring further surgery, inability to complete colonoscopy requiring barium enema. 10/05/24927 Cosigner Signature (if applicable): CC: Dr. Faraz Hernandez MD; Dr. Edward Edwards MD [facility] Consult note [facility] Medical Records Department [facility] [place] [address] Pre-Anesthesia Evaluation 10/05/24915 MR#: [id number] Acct: [id number] Name: SALVADOR YORK Jr. Rep #:[id number] : 1970 54 From: Ramon Morgan MD PCP: Dr. 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 Hx Respiratory Tract Infection No 10/03/24 13:47 STOP Sleep Apnea STOP Sleep Apnea - 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: STOP Sleep Apnea - 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 Hx Hypertension Yes: CONTROLLED WITH MED 10/03/24 [...] 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: 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 Tobacco Use Smoking Status Current every day smoker 10/03/24 13:47 Hx Tobacco Use Yes 10/03/24 13:47 Years Smoking Packs Smoked per Day Smoking Cessation Date was within the last 15 years Hx Smoking Cessation Date Hx Smoking Cessation Counseling Any additional information?: Yes Tobacco Use: Chew (Patient did not chew today.) Hematologic Medial History Hematologic Hx - 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: Hematologic 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 Hx of Blood Transfusion No 10/03/24 13:47 [...] confused, unrespo /Reproduction History /Reproductive 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: /Reproductive Hx- 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 Hx Now No 10/03/24 13:47 Gestational Age [...] MD Cosigner Signature: Date CC: ~ [facility] Note Date/Time October 05, 2024 9:23 am [facility] Medical Records Department [address] [place] [address] Pre-Anesthesia Evaluation 10/05/24915 MR#: [id number] Acct: [id number] Name: SALVADOR YORK . Rep #:[id number] : 1970 54 From: Ramon Morgan MD PCP: Dr. 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 Hx Respiratory Tract Infection No 10/03/24 13:47 STOP Sleep Apnea STOP Sleep Apnea - 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: STOP Sleep Apnea - 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 Hx Hypertension Yes: CONTROLLED WITH MED 10/03/24 [...] 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: 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 Tobacco Use Smoking Status Current every day smoker 10/03/24 13:47 Hx Tobacco Use Yes 10/03/24 13:47 Years Smoking Packs Smoked per Day Smoking Cessation Date was within the last 15 years Hx Smoking Cessation Date Hx Smoking Cessation Counseling Any additional information?: Yes Tobacco Use: Chew (Patient did not chew today.) Hematologic Medial History Hematologic Hx - 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: 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 Rep #:[id number] : 1970 54 From: Elsie Lo CRNA PCP: Dr. Edward Edwards MD Status:REG SD C Y Race: C Location: [place] [address] Anesthesia: Postop Eval I Current Vital Signs Temperature: 97.1 F Pulse Rate: 49 Blood Pressure: 85/44 Respiratory Rate: 18 Pulse Ox: 96 Assessment Airway patent: Yes Spontaneous unlabored respirations: Yes nausea: No Vomiting: No Anesthesia Complication: No Fluid Hydration Crystalloid volume administer (ml): 500 Total IV fluid infused: 500 Progress Note Anesthesia document: Postop Eval 1 completed: Yes 10/05/24958 <Electronically signed by Elsie baltazar GRAPHICS EDITOR> Date _ Elsiefreddy Lo GRAPHICS EDITOR Cosigner Signature: Date CC: ~ Signed [facility] Work Phone: Consult note Author Elsie Lo [facility] Note Date/Time October 05, 2024 10:2 8am [facility] Medical Records Department [address] [place] [address] Anesthesia Postop Eval II 10/05/24 1027 MR#: [id number] Acct: [id number] Name: SUSANNASALVADOR JARRETT Kelly. Rep #:[id number] : 1970 54 From: Elsie Lo GRAPHICS EDITOR PCP: Dr. Edward Edwards MD Status:REG SD C Y Race: C Location: [place] [address] Anesthesia Postop Eval I Sum Postop Eval Completion status Anesthesia document: Postop Eval 1 completed: Yes Anesthesia Postop Eval I Summary Anesthesia Postop Eval I Summary: Anesthesia Postop Eval I: Assessment Summary Airway patent Yes 10/05/24 09:59 GRAPHICS EDITOR.CSIR Spontaneous unlabored Yes 10/05/24 09:59 GRAPHICS EDITOR.CSIR respirations Mental status nausea No 10/05/24 09:59 GRAPHICS EDITOR.CSIR Vomiting No 10/05/24 09:59 GRAPHICS EDITOR.CSIR Anesthesia Postop Eval I: Fluid Summary Crystalloid volume administer 500 10/05/24 09:59 GRAPHICS EDITOR.CSIR (ml) Colloids volume administered ( ml) Blood Product volume administered (ml) Total IV fluid infused 500 10/05/24 09:59 GRAPHICS EDITOR.CSIR Anesthesia Postop Eval I: Summary Notes Anesthesia Complication No 10/05/24 09:59 GRAPHICS EDITOR.CSIR Anesthesia Complication Comment: Post-operative progress note Anesthesia: Postop Eval II Evaluation Mental status: Awake Pain Level: 0 nausea: No Vomiting: No 10/05/24 1028 <Electronically signed by Elsie baltazar GRAPHICS EDITOR> Date _ Elsie britni GRAPHICS EDITOR Cosigner Signature: Date CC: ~ Signed [facility] Work Phone: Evaluation noteNo assessment information available [facility] Work Phone: History and physical note Author Faraz Hernandez [facility] Note Date/Time October 05, 2024 9:28 am [facility] Medical Records Department [address] [facility] [place] [address] History & Physical Exam 10/05/24926 MR#: [id number] Acct: [id number] Name: SALVADOR YORK Jr. Rep #:[id number] : 1970 54 From: Faraz richards MD PCP: Dr. Edward Edwards MD Status:REG SD C Location: [address] - General HPI Narrative SALVADOR YORK, is a 54 M who presents for screening colonoscopy. Patient has never had a colonoscopy in the past. He denies any abdominal pain or blood in stool. No family history of colon cancer. [facility] Medical History Wears glasses Wears contact lenses [...] 08:28) Discharge Is Pt Admitted From a Shelter, or a Prison: No After D/C, Where Do you Plan [...] proceed with procedure. Faraz Hernandez MD Pager: [facility] [address] [place] [address], [address] [place] [address] Office: Surgery Risks - Colonoscopy Risks Include but are not Limited To: Risks include but are not limited to: Bleeding, perforation requiring further surgery, inability to complete colonoscopy requiring barium enema. 10/05/24 0928 <Electronically signed by Faraz Hernandez MD> Cosigner Signature (if applicable): CC: Dr. Faraz Hernandez MD; Dr. Edward Edwards MD~ Signed [facility] Work Phone: Reason for referral (narrative)No reason for referral information availableWDayton [facility] Work Phone: Chief Complaint and Reason for Visit Chief Complaint Admit Date 2 DRS/ 2 ORDERS October 23, 2024 3:24 pm Reason for Visit Admit Date Screen for colon cancer October 05, 2024 8:04am Advance Directives No Advanced Directives Records Found Advance Directive Response Recorded Date/ Time Do you have a Healthcare Power of Courier Driver? Yes October 03, 2024 1:47pm Summary Purpose Family History No Family History Records Found Additional Source Comments Care Teams (unrecognized sec tion and content) Team Status: Active Member Role Status Dates Dr. Theo Falk MD Family Provider Active Dr. Theo Falk MD Primary Care Provider Active Team Status: Inactive Member Role Status Dates Dr. Theo Falk MD Primary Care Provide r, Attending Provider, Referring Provider Active Team Status: Active Member Role/Relationship Status Dates Edward Edwards MD Primary Care Provider Active Team Status: Inactive Member Role/Relationship Status Dates Dr. Faraz Hernandez MD Attending Provider Active Start: October 05, 2024 End: October 05, 2024 Edward Edwards MD Primary Care Provider Active St art: October 05, 2024 End: October 05, 2024 Edward Edwards MD Referring Provider Active Start : October 05, 2024 End: October 05, 2024 Team Status: Active Member Role/Relationship Status Dates Dr. Faraz Hernandez MD Attending Provider Active Start: October 05, 2024 Dr. Faraz Hernandez MD Other Provider Active Start: October 05, 2024 Edward Edwards MD Primary Care Provider Active St art: October 05, 2024 Edward Edwards MD Referring Provider Active Start : October 05, 2024 Team Status: Inactive Member Role/Relationship Status Dates Edward Edwards MD Primary Care Provider Active St art: October 23, 2024 End: October 23, 2024 Edward Edwards MD Attending Provider Active Start : October 23, 2024 End: October 23, 2024 Edward Edwards MD Referring Provider Active Start : October 23, 2024 End: October 23, 2024 ANJEL MCMAHAN Other Provider Active Start: October 23, 2024 End: October 23, 2024 Goals (unrecognized section and content) Goals may be documented in a n alternate section (unrecognized sect ion and content) No Status Records Found INFORMATION SOURCE (unrecogn ized section and content) DATE CREATED AUTHOR 10/30/2024 [facility] FOR RECORDS PERTAINING TO PATIENTS WHO ARE [...] BE BASED ON THE PRIMARY CLINICAL RECORDS. [email or web address] provides no warranty or guarantee of the accuracy or completeness of information in this document.
[2025-04-10 17:29] LABS: Hematocrit 41.3 % (40-54); Hemoglobin 14.3 g/dL (13.0-16.5); Immature Granulocytes Count 0.020 X10^3/uL (0.0-0.0); Mean Corp Hgb Conc 34.6 g/dL (32-36); Mean Corpuscular Volume 93.9 fL (80-94); Mean Platelet Vol. 9.8 fl (6.2-12.0); NRBC Flagged by Analyzer 0 % (0-5); Platelet Count 188 K/mm3 (150-450); RBC Distribution Width CV 12.5 % (11.6-14.6); RBC Distribution Width SD 43.1 fl (35.1-43.9); Red Blood Count 4.40 M/mm3 (4.6-6.2); White Blood Count 4.7 K/mm3 (4.4-11.0)
[2025-04-10 17:41] LABS: AST(SGOT) 28 U/L (<=37); Alanine Aminotransfer ALT/SGPT 45 U/L (<=46); Albumin, Serum 4.4 g/dL (3.5-5.0); Alkaline Phosphatase 65 U/L (40-129); Anion Gap 10 (7-18); BUN 19 mg/dL (4-19); BUN/Creat Ratio 16.8 RATIO (10-20); Calcium,Total 9.5 mg/dL (7.6-11.0); Carbon Dioxide 27.4 mmol/L (20.0-29.0); Chloride 102 mmol/L (96-106); Globulin 2.7 g/dL (2.2-4.2); Glucose 94 mg/dL (70-99); Potassium 4.0 mmol/L (3.5-5.1)
[2025-04-13 08:08] LABS: Immunoglobulin G 1067 mg/dL (603-1613)
== END | disposition home or self-care (01) ==
LOC: MTLAB 12:59
PROVIDERS: PCP Family Medicine; Referring Provider Nurse Practitioner Gerontology; Visit Provider Nurse Practitioner Gerontology
DX: G35.A Relapsing-remitting multiple sclerosis (principal); Z79.899 Other long term (current) drug therapy
CPT/HCPCS: 36415; 80053; 82784; 85025